=== PATIENT | female | born 1955 | race Caucasian/White ===

== ENCOUNTER 2017-01-31 16:01 | Inpatient (IN) | payer BC, OTHER ==
[2017-01-31 16:01] VITALS: PULSE 122
--- NOTE | 2017-01-31 16:20 | ED PDOC ---
Arrival/HPI - General Chief Complaint: Shortness Of Breath Time Seen by Provider: 01/31/17 16:02 Historian: Patient - History of Present Illness Narrative History of Present Illness (Text): 01/31/17 16:12 A 61 year old female, whose past medical history includes atrial fibrillation s/ p ablation and hypertension, presents to the emergency department complaining of shortness of breath, palpitations, and tachycardia. 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 Patient denies of any fever, cough, or any other complaints. PMD: Dr. Quick Symptom Onset: Sudden Symptom Course: Unchanged Past Medical History - Provider Review Nursing Documentation Reviewed: Yes - Infectious Disease Hx of Infectious Diseases: None - Tetanus Immunization Tetanus Immunization: Unknown - Cardiac Hx Hypertension: Yes Hx Pacemaker: No - Pulmonary Hx Respiratory Disorders: No - Neurological Hx Paralysis: No - HEENT Hx HEENT Disorder: No - Renal Hx Renal Disorder: No - Endocrine/Metabolic Hx Endocrine Disorders: No - Hematological/Oncological Hx Blood Transfusions: No Hx Blood Transfusion Reaction: No - Integumentary Hx Dermatological Disorder: No - Musculoskeletal/Rheumatological Hx Musculoskeletal Disorders: No - Gastrointestinal Hx Gastrointestinal Disorders: No - Genitourinary/Gynecological Hx Genitourinary Disorders: No - Psychiatric Hx Emotional Abuse: No Hx Physical Abuse: No Hx Substance Use: No - Surgical History Hx Hysterectomy: Yes - Anesthesia Hx Anesthesia Reactions: No Hx Malignant Hyperthermia: No - Suicidal Assessment Feels Threatened In Home Enviroment: No Family/Social History - Physician Review Nursing Documentation Reviewed: Yes Family/Social History: No Known Family HX Smoking Status: Never Smoked Hx Alcohol Use: No Hx Substance Use: No Hx Substance Use Treatment: No Allergies/Home Meds Allergies/Adverse Reactions: Allergies No Known Allergies Allergy (Verified 09/03/15 08:28) Home Medications: Home Meds Medication Instructions Recorded Confirmed Aspirin [Aspirin EC] 81 mg PO DAILY 09/03/15 01/31/17 Cholecalciferol (Vitamin D3) 1,000 iu PO DAILY 09/03/15 01/31/17 [Vitamin D] Lisinopril [Zestril] 5 mg PO DAILY 09/03/15 01/31/17 Multivitamin [Ngx-Cfkzpe-Mmoas] 1 each PO DAILY 09/03/15 01/31/17 Omeprazole 40 mg PO DAILY 09/03/15 01/31/17 Review of Systems - Physician Review All systems were reviewed & negative as marked: Yes - Review of Systems Constitutional: absent: Fevers Respiratory: SOB. absent: Cough Cardiovascular: Chest Pain, Palpitations Physical Exam Vital Signs Reviewed: Yes Vital Signs Temp Pulse Pulse Resp BP Pulse Ox 01/31/17 19:23 118 H 22 121/85 100 01/31/17 18:02 98.3 F 125 H 125 H 27 H 134/95 H 01/31/17 17:09 139/101 H 01/31/17 17:02 123 H 155/90 H 01/31/17 16:20 164 H 118/66 01/31/17 16:10 98.3 F 170 H 18 118/66 98 01/31/17 16:01 98.3 F 28 H 98 Temperature: Afebrile Respiratory Rate: Normal Appearance: Positive for: Well-Appearing Pain Distress: None Mental Status: Positive for: Alert and Oriented X 3 - Systems Exam Head: Present: Atraumatic, Normocephalic Pupils: Present: PERRL Extroacular Muscles: Present: EOMI Conjunctiva: Present: Normal Mouth: Present: Moist Mucous Membranes Neck: Present: Normal Range of Motion Respiratory/Chest: Present: Rhonchi (mild rhonchi ) Cardiovascular: Present: Irregular Rhythm Abdomen: Present: Normal Bowel Sounds. No: Tenderness, Distention, Peritoneal Signs Back: Present: Normal Inspection Upper Extremity: Present: Normal Inspection. No: Cyanosis, Edema Lower Extremity: Present: Normal Inspection. No: Edema Neurological: Present: GCS=15, CN II-XII Intact, Speech Normal Skin: Present: Warm, Dry, Normal Color. No: Rashes Psychiatric: Present: Alert, Oriented x 3, Normal Insight, Normal Concentration Medical Decision Making ED Course and Treatment: 01/31/17 16:19 Impression: 61 year old female with shortness of breath, palpitations, and tachycardia. Physical exam shows irregularly irregular rhythm; and mild rhonchi. Plan: -- EKG -- Chest X-ray -- Labs -- Urinalysis -- Cardizem -- Reassess and disposition Prior Visits: Notes and results from previous visits were reviewed. Patient was last seen in the emergency department on 08/02/2015 for sudden onset lower abdominal pain radiating to the left back. Patient was discharged home with prescriptions for severe pain: Ciprofloxacin HCl [Cipro] 500 mg PO BID #10 tab oxyCODONE/Acetaminophen [Percocet 5/325 mg Tab] 1 ea PO Q6 PRN #6 tab. Progress Notes: 01/31/2017 16:20 EKG: Ordered, reviewed, and independently interpreted the EKG. Rate : 159 BPM Rhythm : Atrial fibrillation Interpretation : No ST-segment elevations or depressions, no T-wave inversions, normal intervals. Comparison : No previous EKG for comparison. 01/31/2017 16:34 (REPEAT) EKG: Ordered, reviewed, and independently interpreted the EKG. Rate : 98 BPM Rhythm : Atrial fibrillation Interpretation : No ST-segment elevations or depressions, no T-wave inversions, normal intervals. Comparison : No previous EKG for comparison. 01/31/2017 17:06 Chest X-ray FINDINGS: LUNGS: Pulmonary PLEURA: Small bilateral pleural effusions. CARDIOVASCULAR: Congestion cardiomegaly, CHF OSSEOUS STRUCTURES: No significant abnormalities. VISUALIZED UPPER ABDOMEN: Normal. OTHER FINDINGS: None. IMPRESSION: Cardiomegaly/mild CHF. Dictator: Bowen Marshall MD 01/31/17 20:[address] dr lu accepts for admission. - Lab Interpretations Lab Results: 01/31/17 16:05 01/31/17 16:05 Lab Results 01/31/17 16:05: Free T4 1.49, TSH 3rd Generation 0.57 01/31/17 16:05: Sodium 141, Potassium 4.2, Chloride 109 H, Carbon Dioxide 24, Anion Gap 12, BUN 33 H, Creatinine 1.2, Est GFR ( Amer) 55, Est GFR (Non- Af Amer) 45, Random Glucose 119 H, Calcium 9.7, Magnesium 1.8, Total Bilirubin 1.2, AST 57 H, ALT 71 H, Alkaline Phosphatase 93, Lactate Dehydrogenase 517, Total Creatine Kinase 24 L, Troponin I < 0.01 D, NT-Pro-B Natriuret Pep 5600 H , Total Protein 6.1, Albumin 3.6, Globulin 2.5, Albumin/Globulin Ratio 1.4 01/31/17 16:05: PT 14.6 H, INR 1.35 H, APTT 29.9 01/31/17 16:05: WBC 7.5 D, RBC 5.00, Hgb 12.0, Hct 38.4, MCV 76.8 L, MCH 24.0 L , MCHC 31.3, RDW 16.5 H, Plt Count 156, MPV 10.8, Gran % 66.8, Lymph % (Auto) 18.8 L, [place] % (Auto) 10.7 H, Eos % (Auto) 3.4, Baso % (Auto) 0.3, Gran # 4.99, Lymph # 1.4, [place] # 0.8 H, Eos # 0.3, Baso # 0.02 I have reviewed the lab results: Yes - RAD Interpretation Radiology Orders: 01/31/17 16:10 CHEST PORTABLE [RAD] Stat - Medication Orders Current Medication Orders: Apixaban (Eliquis) 5 mg PO BID LUZMARIA PRN Reason: Protocol Last Admin: 01/31/17 18:12 Dose: Furosemide (Lasix) 40 mg IV BID LUZMARIA diltiaZEM IVPB 100mg in NS (Cardizem 100mg In Ns) 100 mls @ 10 mls/hr IV .Q10H PRN; Protocol; 10 MG/HR PRN Reason: TITRATE PER MD ORDER Last Admin: 01/31/17 19:31 Dose: 10 mg/hr, 10 mls/hr eMAR Start Stop Document 01/31/17 19:31 YP (Rec: 01/31/17 19:31 YP [id number]) Intravenous Solution Start Date 01/31/17 Start Time 19:31 Titration Intervention Document 01/31/17 19:31 YP (Rec: 01/31/17 19:31 YP [id number]) Titration Intake Waste Amount 0 Container Volume 100 Titration Dosing Titration Dose 10 IV Rate 10 Intake/Decrease Started Ceftriaxone Sodium (Rocephin 1 Gram Ivpb) 1 gm in 100 mls @ 100 mls/hr IVPB DAILY LUZMARIA PRN Reason: Protocol Azithromycin (Zithromax 500mg In Ns) 500 mg in 250 mls @ 167 mls/hr IVPB DAILY LUZMARIA PRN Reason: Protocol Lisinopril (Zestril) 2.5 mg PO DAILY LUZMARIA Pantoprazole Sodium (Protonix Ec Tab) 40 mg PO DAILY LUZMARIA Potassium Chloride (K-Dur 20 Meq Er Tab) 20 meq PO DAILY LUZMARIA Discontinued Medications Apixaban (Eliquis) 5 mg PO STAT STA PRN Reason: Protocol Stop: 01/31/17 16:39 Last Admin: 01/31/17 17:05 Dose: 5 mg Diltiazem HCl (Cardizem) 20 mg IVP STAT STA Stop: 01/31/17 16:12 Last Admin: 01/31/17 16:20 Dose: 20 mg IVP Administration Document 01/31/17 16:20 [place] (Rec: 01/31/17 16:[id number] Charges for Administration # of IVP Administrations 1 MAR Pulse and Blood Pressure Document 01/31/17 16:20 NH (Rec: 01/31/17 16:[address] [id number]) Pulse Pulse Rate (60-90) 164 Blood Pressure Blood Pressure (100/60-150/90) 118/66 Furosemide (Lasix) 40 mg IVP STAT STA Stop: 01/31/17 17:08 Last Admin: 01/31/17 17:09 Dose: 40 mg MAR Blood Pressure Document 01/31/17 17:09 NH (Rec: 01/31/17 17:10 [place] [id number]) Blood Pressure Blood Pressure (100/60-150/90) 139/101 IVP Administration Document 01/31/17 17:09 NH (Rec: 01/31/17 17:10 [place] [id number]) Charges for Administration # of IVP Administrations 1 diltiaZEM IVPB 100mg in NS (Cardizem 100mg In Ns) 100 mls @ 5 mls/hr IV .Q20H PRN; Protocol; 5 MG/HR PRN Reason: TITRATE PER MD ORDER Last Admin: 01/31/17 17:02 Dose: 5 mls/hr eMAR Start Stop Document 01/31/17 17:02 [place] (Rec: 01/31/17 17:[address] [id number]) Intravenous Solution Start Date 01/31/17 Start Time 17:03 MAR Pulse and Blood Pressure Document 01/31/17 17:02 [place] (Rec: 01/31/17 17:[address] [id number]) Pulse Pulse Rate (60-90) 123 Blood Pressure Blood Pressure (100/60-150/90) 155/90 Pneumococcal Polyvalent Vaccine (Pneumovax 23 Vaccine) 0.5 ml IM .ONCE ONE Stop: 01/31/17 18:11 - Scribe Statement The provider has reviewed the documentation as recorded by the Scribe Hanan Dabdi Provider Jean Carlos Attestation: All medical record entries made by the Jean Carlos were at my direction and personally dictated by me. I have reviewed the chart and agree that the record accurately reflects my personal performance of the history, physical exam, medical decision making, and the department course for this patient. I have also personally directed, reviewed, and agree with the discharge instructions and disposition. Disposition/Present on Arrival - Present on Arrival Any Indicators Present on Arrival: No History of DVT/PE: No History of Uncontrolled Diabetes: No Urinary Catheter: No History of Decub. Ulcer: No History Surgical Site Infection Following: None - Disposition Have Diagnosis and Disposition been Completed?: Yes Diagnosis: Atrial fibrillation, Congestive heart failure Disposition: HOSPITALIZED Disposition Time: 05:00 Condition: STABLE
[2017-01-31 16:35] LABS: BASO # 0.02 K/mm3 (0.0-2.0); BASO % 0.3 % (0.0-3.0); EOS # 0.3 (0.0-0.7); EOS % 3.4 % (1.5-5.0); GRAN # 4.99 (1.4-6.5); GRAN % 66.8 % (50.0-68.0); HEMATOCRIT 38.4 % (36.0-48.0); LYMPH # 1.4 (1.2-3.4); LYMPH % 18.8 % (22.0-35.0); MEAN CELL VOLUME 76.8 fl (80.0-105.0); MEAN CORPUSCULAR HGB CONC 31.3 g/dl (31.0-37.0); MEAN PLATELET VOLUME 10.8 fl (7.0-11.0); MONO # 0.8 (0.1-0.6); MONO % 10.7 % (1.0-6.0); RED CELL DISTRIBUTION WIDTH 16.5 % (11.5-14.5); WHITE BLOOD COUNT 7.5 10^3/ul (4.5-11.0)
[2017-01-31] MEDS ORDERED: diltiaZEM IVPB 100mg in NS 100 ML IV PRN (16:35)
[2017-01-31 16:47] LABS: INR 1.35 (0.93-1.08); PARTIAL THROMBOPLASTIN TIME 29.9 Seconds (23.7-30.8)
[2017-01-31 16:49] LABS: ALB/GLOB RATIO 1.4 (1.1-1.8); ALKALINE PHOSPHATASE 93 U/L (38-126); ALT/SGPT 71 U/L (7-56); AST/SGOT 57 U/L (14-36); BILIRUBIN,TOTAL 1.2 mg/dL (0.2-1.3); BLOOD UREA NITROGEN 33 mg/dL (7-21); CALCIUM 9.7 mg/dL (8.4-10.5); CARBON DIOXIDE 24 mmol/L (21-33); CHLORIDE 109 mmol/L (98-107); GFR AFRICAN-AMERICAN 55; GLUCOSE,RANDOM 119 mg/dL (70-110); MAGNESIUM 1.8 mg/dL (1.7-2.2); POTASSIUM 4.2 mmol/L (3.6-5.0); SODIUM 141 mmol/L (132-148); TOTAL PROTEIN 6.1 g/dL (5.8-8.3)
[2017-01-31 17:05] LABS: FREE T4 1.49 ng/dL (0.78-2.19)
--- NOTE | 2017-01-31 17:08 | RAD ---
HISTORY: Shortness of breath. Technique: Single view portable semi erect @ 16:27. COMPARISON: 08/02/2015. FINDINGS: LUNGS: Pulmonary PLEURA: Small bilateral pleural effusions. CARDIOVASCULAR: Congestion cardiomegaly, CHF OSSEOUS STRUCTURES: No significant abnormalities. VISUALIZED UPPER ABDOMEN: Normal. OTHER FINDINGS: None. IMPRESSION: Cardiomegaly/mild CHF.
[2017-01-31 17:09] LABS: TROPONIN I < 0.01 ng/mL
[2017-01-31 17:19] LABS: THYROID STIMULATING HORMONE 0.57 mIU/mL (0.46-4.68)
--- NOTE | 2017-01-31 17:31 | CP.PCM.HP ---
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 Patient states these symptoms began approximately 3-4 days ago without any provoking events. States that she requires 2 pillows to sleep at night to prevent SOB. Admits to dysnpea on exertion. Denies f/c/cp/abdominal pain/n/v/d/c /urinary sxs. PMHx: atrial fibrillation s/p ablation, hypertension, hyperthyroidism PSHX: hysterectomy, cardiac ablation x 1 Allergies: NKDA Family Hx: cad in father Social Hx: denies ETOH use, denies tobacco use, denies illicit drug use PMD: Dr. Quick Physical Examination: Head: Present: Atraumatic, Normocephalic Pupils: Present: PERRL Extroacular Muscles: Present: EOMI Conjunctiva: Present: Normal Mouth: Present: Moist Mucous Membranes Neck: Present: Normal Range of Motion Respiratory/Chest: Present: Rhonchi bilateral lower lobes Cardiovascular: Present: Irregular Rhythm, tachycardic Abdomen: Present: Normal Bowel Sounds. No: Tenderness, Distention, Peritoneal Signs Back: Present: Normal Inspection Extremities: +1 pitting edema bilateral lower extremities Neurological: Patient is awake, alert, responds to verbal stimuli, answers questions appropriately, follows commands, and moves extremities past midline Skin: Present: Warm, Dry, Normal Color. No: Rashes Psychiatric: Present: Alert, Oriented x 3, Normal Insight, Normal Concentration Assessment and Plan: Patient is a 61 year old female with a past medical history of atrial fibrillation s/p ablation and hypertension who is being admitted to the hospital for evaluation and treatment of SOB and palpitations. Atrial Fibrillation with RVR - cardiology consult- Dr. Huang- recommendations appreciated- cardizem gtt at 20, lisinopril 2.5, lasix 40 IV BID, and eliquis 5mg BID - troponins x 3 - ECHO - TSH WNL noted CHF Exacerbation - BNP noted at 5600 - start lasix 40 IV BID as per cardiology - cardiology consult- appreciate recommendations Hypertension - lisinopril 2.5 as per cardiology, kidney function was discussed - BPs trended, reviewed, and appreciated Lower Extremity Edema - likely secondary to CHF exacerbtion, will rule out DVTs- b/l duplex ultrasound of LE Hx of Hyperthyroidism - TSH and T4 WNL PPX - protonix - on eliquis Patient seen, case discussed with, and plan approved by attending physician, Dr. Cheng. Present on Admission - Present on Admission Any Indicators Present on Admission: No Past Patient History - Infectious Disease Hx of Infectious Diseases: None - Tetanus Immunizations Tetanus Immunization: Unknown - Past Social History Smoking Status: Never Smoked - CARDIAC Hx Hypertension: Yes Hx Pacemaker: No - PULMONARY Hx Respiratory Disorders: No - NEUROLOGICAL Hx Paralysis: No - HEENT Hx HEENT Problems: No - RENAL Hx Chronic Kidney Disease: No - ENDOCRINE/METABOLIC Hx Endocrine Disorders: No - HEMATOLOGICAL/ONCOLOGICAL Hx Blood Transfusions: No Hx Blood Transfusion Reaction: No - INTEGUMENTARY Hx Dermatological Problems: No - MUSCULOSKELETAL/RHEUMATOLOGICAL Hx Musculoskeletal Disorders: No - GASTROINTESTINAL Hx Gastrointestinal Disorders: No - GENITOURINARY/GYNECOLOGICAL Hx Genitourinary Disorders: No - PSYCHIATRIC Hx Emotional Abuse: No Hx Physical Abuse: No Hx Substance Use: No - SURGICAL HISTORY Hx Hysterectomy: Yes - ANESTHESIA Hx Anesthesia Reactions: No Hx Malignant Hyperthermia: No Meds Allergies/Adverse Reactions: Allergies Allergy/AdvReac Type Severity Reaction Status Date / Time No Known Allergies Allergy Verified 09/03/15 08:28 Results - Vital Signs Recent Vital Signs: Last Vital Signs Temp 98.3 F 01/31/17 16:10 Pulse 123 H 01/31/17 17:02 Resp 18 01/31/17 16:10 BP 139/101 H 01/31/17 17:09 Pulse Ox 98 01/31/17 16:10 - Labs Result Diagrams: 01/31/17 16:05 01/31/17 16:05 Labs: Laboratory Results - last 24 hr 01/31/17 01/31/17 01/31/17 16:05 16:05 16:05 WBC 7.5 D RBC 5.00 Hgb 12.0 Hct 38.4 MCV 76.8 L MCH 24.0 L MCHC 31.3 RDW 16.5 H Plt Count 156 MPV 10.8 Gran % 66.8 Lymph % (Auto) 18.8 L [place] % (Auto) 10.7 H Eos % (Auto) 3.4 Baso % (Auto) 0.3 Gran # 4.99 Lymph # 1.4 [place] # 0.8 H Eos # 0.3 Baso # 0.02 PT 14.6 H INR 1.35 H APTT 29.9 Sodium 141 Potassium 4.2 Chloride 109 H Carbon Dioxide 24 Anion Gap 12 BUN 33 H Creatinine 1.2 Est GFR ( Amer) 55 Est GFR (Non-Af Amer) 45 Random Glucose 119 H Calcium 9.7 Magnesium 1.8 Total Bilirubin 1.2 AST 57 H ALT 71 H Alkaline Phosphatase 93 Lactate Dehydrogenase 517 Total Creatine Kinase 24 L Troponin I < 0.01 D NT-Pro-B Natriuret Pep 5600 H Total Protein 6.1 Albumin 3.6 Globulin 2.5 Albumin/Globulin Ratio 1.4 <Lucinda Cheng B - Last Filed: 02/01/17 13:38> Results - Vital Signs Recent Vital Signs: Last Vital Signs Temp 97.3 F L 02/01/17 12:27 Pulse 78 02/01/17 12:27 Resp 19 02/01/17 12:27 BP 127/69 02/01/17 12:27 Pulse Ox 99 02/01/17 00:51 - Labs Result Diagrams: 02/01/17 07:33 02/01/17 07:33 Labs: Laboratory Results - last 24 hr 01/31/17 02/01/17 02/01/17 17:57 00:10 07:33 WBC RBC Hgb Hct MCV MCH MCHC RDW Plt Count MPV Gran % Lymph % (Auto) [place] % (Auto) Eos % (Auto) Baso % (Auto) Gran # Lymph # [place] # Eos # Baso # Sodium Potassium Chloride Carbon Dioxide Anion Gap BUN Creatinine Est GFR ( Amer) Est GFR (Non-Af Amer) Random Glucose Hemoglobin A1c Calcium Magnesium Total Bilirubin AST ALT Alkaline Phosphatase Troponin I 0.02 D Total Protein Albumin Globulin Albumin/Globulin Ratio Triglycerides Cholesterol LDL Cholesterol Direct HDL Cholesterol Urine Color Yellow Urine Appearance Sl cloudy Urine pH 6.0 Ur Specific [place] 1.020 Urine Protein Trace H Urine Glucose (UA) Negative Urine Ketones Negative Urine Blood Negative Urine Nitrate Negative Urine Bilirubin Negative Urine Urobilinogen 0.2 Ur Leukocyte Esterase Small H Urine RBC 0 - 2 Urine WBC 2 - 5 Ur Epithelial Cells 1 - 3 Urine Bacteria Rare Hepatitis A IgM Ab Negative Hep Bs Antigen Negative Hep B Core IgM Ab Negative Hepatitis C Antibody Negative 02/01/17 02/01/17 02/01/17 07:33 07:33 07:33 WBC 6.7 RBC 4.53 Hgb 10.9 L Hct 34.7 L MCV 76.6 L MCH 24.1 L MCHC 31.4 RDW 16.4 H Plt Count 135 MPV 10.5 Gran % 65.0 Lymph % (Auto) 18.1 L [place] % (Auto) 12.1 H Eos % (Auto) 4.5 Baso % (Auto) 0.3 Gran # 4.34 Lymph # 1.2 [place] # 0.8 H Eos # 0.3 Baso # 0.02 Sodium 142 Potassium 3.9 Chloride 105 Carbon Dioxide 30 Anion Gap 11 BUN 25 H Creatinine 0.8 Est GFR ( Amer) > 60 Est GFR (Non-Af Amer) > 60 Random Glucose 87 Hemoglobin A1c 6.0 Calcium 9.2 Magnesium 1.7 Total Bilirubin 1.0 AST 37 H D ALT 58 H Alkaline Phosphatase 84 Troponin I 0.02 Total Protein 5.3 L Albumin 3.0 Globulin 2.3 Albumin/Globulin Ratio 1.3 Triglycerides 60 Cholesterol 119 L LDL Cholesterol Direct 89 HDL Cholesterol 27 L Urine Color Urine Appearance Urine pH Ur Specific [place] Urine Protein Urine Glucose (UA) Urine Ketones Urine Blood Urine Nitrate Urine Bilirubin Urine Urobilinogen Ur Leukocyte Esterase Urine RBC Urine WBC Ur Epithelial Cells Urine Bacteria Hepatitis A IgM Ab Hep Bs Antigen Hep B Core IgM Ab Hepatitis C Antibody Attending/Attestation - Attestation I have personally seen and examined this patient.: Yes I have fully participated in the care of the patient.: Yes I have reviewed all pertinent clinical information: Yes Notes (Text): I have seen and examined the patient at bedside. Agree with the above note with the following additions/ exceptions: Briefly this is 61 year old female with history of atrial fibrillation s/p ablation, hypertension, transient hyperthyroidism who is being admitted for evaluation of sob, bilateral leg edema , elevated BNP and cough. She was found to have acute on chronic CHF, new onset atrial fibrillation. Patient will be admitted in tele. Will monitor serial cardiac iso, ekg, lipid panel. TFT's within normal limits. Cardizem bolus was given followed by cardizem drip. Eliquis and Lasix 40 IV bid started. Will order B/L LE US. She has transaminitis secondary to passive congestion from CHF. Hep panel pending. Upon discharge patient will follow up with Dr Quick and Dr Escalante. Dr Lucinda Cheng
[2017-01-31 18:06] LABS: URINE BILIRUBIN NEGATIVE (NEGATIVE); URINE BLOOD NEGATIVE (NEGATIVE); URINE GLUCOSE (UA) NEGATIVE (NEGATIVE); URINE KETONE NEGATIVE (NEGATIVE); URINE LEUKOCYTE ESTERASE SMALL Leu/uL (NEGATIVE); URINE PROTEIN TRACE mg/dL (<30 mg/dL); URINE UROBILINOGEN 0.2 E.U./dL (<1 E.U./dL)
[2017-01-31 18:09] VITALS: BMI 40.4
[2017-01-31 18:10] LABS: URINE APPEARANCE SL CLOUDY (CLEAR); URINE COLOR YELLOW (YELLOW)
[2017-01-31] MEDS ORDERED: Pneumococcal 23-Valent Vaccine IM ONE (18:10)
[2017-01-31 18:50] LABS: URINE RBC 0 - 2 /hpf (0-2)
[2017-01-31 18:51] LABS: URINE BACTERIA RARE (NEG)
[2017-01-31] MEDS: diltiaZEM IVPB 100mg in NS 100 ML IV PRN (19:31)
--- NOTE | 2017-02-01 01:21 | CON ---
DATE: 01/31/2017 LOCATION: The patient is in the emergency room. REASON FOR CONSULTATION: Atrial fibrillation, rapid rate, shortness of breath. HISTORY OF PRESENT ILLNESS: The patient is a known case of atrial fibrillation in the past and had EDD cardioversion, went to sinus rhythm, then again she went into atrial fibrillation with symptomatic being shortness of breath and then she had ablation done by Dr. 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 Last few days, she is having shortness of breath and palpitation and she is found to have rapid atrial fibrillation again. The patient in the past has been also treated for hyperthyroidism, and the patient is also known to have retrosternal goiter. Previous hospitalization, the patient was admitted with atrial fibrillation, rapid rate and shortness of breath, and the patient also had endoscopy, colonoscopy and polyps were removed, and she was also treated for gastritis, and the patient was treated for hyperthyroidism with thyrotoxicosis. The patient's previous cardiac workup, the patient had transesophageal echocardiogram on 01/09/2015, which showed left ventricle is mildly dilated, [id number] concentric left ventricular hypertrophy, LV ejection fraction, moderately impaired with EF of 35%, right ventricle mildly dilated, systolic function of RV is mildly reduced, moderate aortic regurg, mitral regurg, [id number], there is moderate tricuspid regurg, RVSP 42 mmHg, mild pulmonic regurgitation, trivial pericardial effusion, mild plaque in the descending aorta. The patient was cardioverted with 22 joules and converted to normal sinus rhythm. The patient had cardiac catheterization on 12/16/2014, which showed normal coronaries, ejection fraction 45% to 50%. The patient was in atrial fibrillation at that time. PA pressure was 45/20 with mean of 30 mmHg, PC wedge pressure was 20 mmHg, cardiac output was 3.0. ALLERGIES: THE PATIENT HAS NO ALLERGIES. MEDICATIONS AT HOME: Omeprazole 40 daily, lisinopril 5 mg daily, vitamin D 1000 IU daily, aspirin 81 mg p.o. daily. After the patient had ablation done for atrial fibrillation, her beta-gretta therapy was stopped. PERSONAL HISTORY: Denies smoking. Denies drinking. FAMILY HISTORY: Not significant. REVIEW OF SYSTEMS: All other systems reviewed. Positive mentioned in the history, others were negative. PHYSICAL EXAMINATION: VITAL SIGNS: Blood pressure 118/66, respirations 18, pulse about 164 per minute, irregular due to atrial fibrillation and temperature 98.3. HEENT: Head is normocephalic. Eyes: Pupils normal. Conjunctivae normal. Nose and throat normal. NECK: JVP low. Carotids are equal. THORAX: AP diameter normal. LUNGS: No significant rales. CARDIOVASCULAR: S1 and S2, irregular rhythm due to atrial fibrillation. ABDOMEN: Soft, nontender. No organomegaly. EXTREMITIES: No clubbing. No cyanosis. Oedema Legs Present. LABORATORY DATA: EKG showed atrial fibrillation with rapid rate around 160 to 170 per minute. WBC is 7.5, hemoglobin 12.0, hematocrit 38.4, and platelets 156. The patient's other labs are pending. Chest x-ray is pending. Other blood work including TSH is pending. is also pending. DIAGNOSES: 1. Atrial fibrillation with rapid ventricular rate. 2. Shortness of breath, rule out congestive heart failure. 3. History of hyperthyroidism. 4. Obesity. 5. History of left ventricular systolic dysfunction which had improved after ablation and the patient being in sinus rhythm. The patient has a history of aortic regurgitation and mitral regurgitation. PLAN: We will give 20 mg of IV bolus of Cardizem and then put 5 mg drip. Also, we will start her Eliquis 5 mg b.i.d. We will check thyroid profile and other lab data including chest x-ray, and we will follow with you. Jose Huang MD [facility]
[2017-02-01] MEDS: diltiaZEM IVPB 100mg in NS 100 ML IV PRN (02:20)
[2017-02-01 07:47] LABS: BASO # 0.02 K/mm3 (0.0-2.0); BASO % 0.3 % (0.0-3.0); EOS # 0.3 (0.0-0.7); EOS % 4.5 % (1.5-5.0); GRAN # 4.34 (1.4-6.5); HEMATOCRIT 34.7 % (36.0-48.0); LYMPH # 1.2 (1.2-3.4); LYMPH % 18.1 % (22.0-35.0); MEAN CELL VOLUME 76.6 fl (80.0-105.0); MEAN CORPUSCULAR HEMOGLOBIN 24.1 pg (25.0-35.0); MEAN CORPUSCULAR HGB CONC 31.4 g/dl (31.0-37.0); MEAN PLATELET VOLUME 10.5 fl (7.0-11.0); MONO # 0.8 (0.1-0.6); MONO % 12.1 % (1.0-6.0); RED CELL DISTRIBUTION WIDTH 16.4 % (11.5-14.5); WHITE BLOOD COUNT 6.7 10^3/ul (4.5-11.0)
[2017-02-01 07:58] LABS: ALB/GLOB RATIO 1.3 (1.1-1.8); ALKALINE PHOSPHATASE 84 U/L (38-126); ALT/SGPT 58 U/L (7-56); AST/SGOT 37 U/L (14-36); BLOOD UREA NITROGEN 25 mg/dL (7-21); CALCIUM 9.2 mg/dL (8.4-10.5); CARBON DIOXIDE 30 mmol/L (21-33); CHLORIDE 105 mmol/L (98-107); CHOLESTEROL 119 mg/dL (130-200); GFR AFRICAN-AMERICAN > 60; GLUCOSE,RANDOM 87 mg/dL (70-110); MAGNESIUM 1.7 mg/dL (1.7-2.2); POTASSIUM 3.9 mmol/L (3.6-5.0); SODIUM 142 mmol/L (132-148); TOTAL PROTEIN 5.3 g/dL (5.8-8.3)
[2017-02-01 08:09] LABS: TROPONIN I 0.02 ng/mL
[2017-02-01] MEDS: Potassium Chloride 20 mEq ER Tab PO SCH (09:27)
[2017-02-01] MEDS: Pantoprazole 40 mg EC Tab PO SCH (09:28)
[2017-02-01] MEDS: Magnesium Oxide 400 mg Tab UD PO SCH ×2 (09:29→17:05)
--- NOTE | 2017-02-01 09:30 | CP.PCM.PN ---
<Lalitha Gonzalez - Last Filed: 02/01/17 14:29> Subjective - Date & Time of Evaluation Date of Evaluation: 02/01/17 Time of Evaluation: 09:28 - Subjective Subjective: Hospitalist Service Progress Note: Patient seen and examined at bedside. Per nursing no acute events overnight. Patient resting, still short of breath with productive cough. Offers no other complaints at this time. Denies headaches, dizziness, cp, palpitations, abdominal pain, urinary symptoms. Objective - Vital Signs/Intake and Output Vital Signs (last 24 hours): Temp Pulse Resp BP Pulse Ox 97.8 F 104 H 19 130/90 99 02/01/17 00:51 02/01/17 06:00 02/01/17 00:51 02/01/17 00:51 02/01/17 00:51 Intake and Output: 02/01/17 02/01/17 06:59 18:59 Intake Total 220 Output Total 600 Balance -380 - Medications Medications: Current Medications Acetaminophen (Tylenol 325mg Tab) 650 mg PO Q6H PRN PRN Reason: Headache Last Admin: 02/01/17 03:22 Dose: 650 mg Apixaban (Eliquis) 5 mg PO BID LUZMARIA PRN Reason: Protocol Last Admin: 01/31/17 18:12 Dose: Not Given Furosemide (Lasix) 40 mg IV BID LUZMARIA diltiaZEM IVPB 100mg in NS (Cardizem 100mg In Ns) 100 mls @ 10 mls/hr IV .Q10H PRN; Protocol; 10 MG/HR PRN Reason: TITRATE PER MD ORDER Stop: 02/01/17 10:00 Last Admin: 02/01/17 02:20 Dose: 10 mg/hr, 10 mls/hr Ceftriaxone Sodium (Rocephin 1 Gram Ivpb) 1 gm in 100 mls @ 100 mls/hr IVPB DAILY [facility]ZMARIA PRN Reason: Protocol Azithromycin (Zithromax 500mg In Ns) 500 mg in 250 mls @ 167 mls/hr IVPB DAILY LUZMARIA PRN Reason: Protocol Lisinopril (Zestril) 2.5 mg PO DAILY [facility] Magnesium Oxide (Mag-Ox) 400 mg PO BID [facility]ZMAR[facility] Stop: 02/02/17 23:59 Pantoprazole Sodium (Protonix Ec Tab) 40 mg PO DAILY [facility]MAR[facility] Potassium Chloride (K-Dur 20 Meq Er Tab) 20 meq PO DAILY [facility]ZMARIA Potassium Chloride (K-Dur 20 Meq Er Tab) 40 meq PO ONCE ONE Stop: 02/01/17 13:01 Propranolol HCl (Inderal) 10 mg PO TID LUZMARIA Verapamil HCl (Calan Tab) 40 mg PO TID LUZMARIA - Labs Labs: 02/01/17 07:33 02/01/17 07:33 PT 14.6 Seconds (9.9-11.8) H 01/31/17 16:05 INR 1.35 (0.93-1.08) H 01/31/17 16:05 APTT 29.9 Seconds (23.7-30.8) 01/31/17 16:05 - Constitutional Appears: Non-toxic, No Acute Distress - Head Exam Head Exam: ATRAUMATIC, NORMAL INSPECTION - Eye Exam Eye Exam: EOMI, Normal appearance - ENT Exam ENT Exam: Mucous Membranes Moist - Neck Exam Neck Exam: Full ROM - Respiratory Exam Respiratory Exam: Decreased Breath Sounds, Rales, Wheezes, NORMAL BREATHING PATTERN. absent: Rhonchi - Cardiovascular Exam Cardiovascular Exam: Irregular Rhythm, +S1, +S2 - GI/Abdominal Exam GI & Abdominal Exam: Soft. absent: Guarding, Rigid, Tenderness, Rebound - Rectal Exam Rectal Exam: Deferred - Extremities Exam Extremities Exam: Pedal Edema Additional comments: +1 pitting edema bilaterally - Back Exam Back Exam: NORMAL INSPECTION - Neurological Exam Neurological Exam: Alert, Awake, Oriented x3 - Psychiatric Exam Psychiatric exam: Normal Affect, Normal Mood - Skin Skin Exam: Normal Color, Warm Assessment and Plan - Assessment and Plan (Free Text) Assessment: Patient is a 61 year old female with a past medical history of atrial fibrillation s/p ablation and hypertension who is being admitted to the hospital for evaluation and treatment of SOB and palpitations. Plan: 1. Recurrent Paroxysmal Atrial Fibrillation with RVR - Stable, afebrile - S/P ablation in 2014 - Afib currently on telemetry - s/p Cardizem 20mg IV bolus - Cardizem drip discontinued - On Verapamil 40 mg TID, Propanolol 10 mg TID - [id number]: 3 on Eliquis 5mg BID - Troponins 0.01 - 0.02 - 0.02 - Echo ordered, f/u results - Cardiology consult- Dr. Huang- recommendations appreciated 2. Acute CHF Exacerbation - BNP noted at 5600 - EF 12/2014 noted to be 35% - CXR on admission showing cardiomegaly and mild CHF - Continue Lasix 40 IV BID - F/U echo - Daily weights - Xopenex prn - Cardiology consult- appreciate recommendations 3. Productive cough, possible community acquired pneumonia - On Rocephin and Azithromycin (day 2) - F/U influenza, sputum cx - Xopenex Q4H prn 4. Hypertension - Lisinopril 2.5mg daily as per cardiology, kidney function was discussed - Continue to monitor BPs 5. Lower Extremity Edema - Likely secondary to CHF exacerbtion - LE dopplers negative for DVT 6. Transaminitis - Likely secondary to passive congestion from CHF - Improving; AST/ALT 37/58 - F/U hep panel - Continue to monitor 7. Urinary Tract Infection - UA showing small leuk esterase and bacteria - On azithromycin and Rocephin (day 2) - F/U urine cx 8. Transient Hyperthyroidism - TSH and T4 WNL GI/DVT PPX - Protonix - Eliquis 5 mg BID <Lucinda Cheng - Last Filed: 02/01/17 15:51> Objective - Vital Signs/Intake and Output Vital Signs (last 24 hours): Temp Pulse Resp BP Pulse Ox 97.3 F L 77 19 127/69 99 02/01/17 12:27 02/01/17 14:00 02/01/17 12:27 02/01/17 12:27 02/01/17 00:51 Intake and Output: 02/01/17 02/01/17 06:59 18:59 Intake Total 220 Output Total 600 Balance -380 - Medications Medications: Current Medications Acetaminophen (Tylenol 325mg Tab) 650 mg PO Q6H PRN PRN Reason: Headache Last Admin: 02/01/17 03:22 Dose: 650 mg Apixaban (Eliquis) 5 mg PO BID LUZMARIA PRN Reason: Protocol Last Admin: 02/01/17 09:27 Dose: 5 mg Furosemide (Lasix) 40 mg IVP BID LUZMARIA Last Admin: 02/01/17 09:46 Dose: 40 mg Ceftriaxone Sodium (Rocephin 1 Gram Ivpb) 1 gm in 100 mls @ 100 mls/hr IVPB DAILY LUZMARIA PRN Reason: Protocol Last Admin: 02/01/17 10:39 Dose: 100 mls/hr Azithromycin (Zithromax 500mg In Ns) 500 mg in 250 mls @ 167 mls/hr IVPB DAILY LUZMARIA PRN Reason: Protocol Last Admin: 02/01/17 11:51 Dose: 167 mls/hr Levalbuterol HCl (Xopenex) 1.25 mg IH [id number] PRN PRN Reason: Shortness of Breath Lisinopril (Zestril) 2.5 mg PO DAILY [facility] Last Admin: 02/01/17 09:28 Dose: 2.5 mg Magnesium Oxide (Mag-Ox) 400 mg PO BID [facility] Stop: 02/02/17 23:59 Last Admin: 02/01/17 09:29 Dose: 400 mg Pantoprazole Sodium (Protonix Ec Tab) 40 mg PO DAILY [facility] Last Admin: 02/01/17 09:28 Dose: 40 mg Potassium Chloride (K-Dur 20 Meq Er Tab) 20 meq PO DAILY [facility] Last Admin: 02/01/17 09:27 Dose: 20 meq Propranolol HCl (Inderal) 10 mg PO TID [facility] Last Admin: 02/01/17 13:38 Dose: 10 mg Verapamil HCl (Calan Tab) 40 mg PO TID [facility] Last Admin: 02/01/17 13:38 Dose: 40 mg - Labs Labs: 02/01/17 07:33 02/01/17 07:33 PT 14.6 Seconds (9.9-11.8) H 01/31/17 16:05 INR 1.35 (0.93-1.08) H 01/31/17 16:05 APTT 29.9 Seconds (23.7-30.8) 01/31/17 16:05 Attending/Attestation - Attestation I have personally seen and examined this patient.: Yes I have fully participated in the care of the patient.: Yes I have reviewed all pertinent clinical information, including history, physical exam and plan: Yes Notes (Text): I have seen and examined the patient at bedside. Agree with the above note with the following additions/ exceptions: Briefly this is 61 year old female with history of atrial fibrillation s/p ablation, hypertension, transient hyperthyroidism, systolic CHF (35%), valvular heart disease, Moderate AR, moderate to severe AR who is being admitted for evaluation of sob, bilateral leg edema, elevated BNP and cough. She was found to have acute on chronic CHF and new onset atrial fibrillation. Serial cardiac iso negative. Cardizem drip was discontinued and patient was started on verapamil and propranolol. TFT's within normal limits. Continue Eliquis, lisinopril and Lasix 40 IV bid. B/L LE US is negative. She has transaminitis secondary to passive congestion from CHF. Hep panel is negative. Patient is on rocephin and zithro for acute bronchitis. Will start xopenex prn wheezing. Upon discharge patient will follow up with Dr Quick and Dr Escalante. Dr Lucinda Cheng
[2017-02-01] MEDS: cefTRIAXone 1 gm 1 GM/100 ML BAG IVPB SCH (10:39)
[2017-02-01] MEDS ORDERED: Levalbuterol 1.25 MG/3 ML Inhal Soln UD IH PRN (11:11)
--- NOTE | 2017-02-01 11:46 | CARD ---
APPROVED REPORT EKG Measurement Heart [id number] <Conclusion> Atrial fibrillation with rapid ventricular response Nonspecific T wave abnormality, probably digitalis effect Abnormal ECG
--- NOTE | 2017-02-01 11:46 | CARD ---
APPROVED REPORT EKG Measurement Heart [id number] <Conclusion> Atrial fibrillation Nonspecific T wave abnormality, probably digitalis effect Abnormal ECG
[2017-02-01] MEDS: Azithromycin 500MG/NS 250ml 500 MG/250 ML BAG IVPB SCH (11:51)
[2017-02-01] MEDS ORDERED: Potassium Chloride 20 mEq ER Tab PO ONE (13:00)
--- NOTE | 2017-02-01 15:00 | PN ---
DATE: 02/01/2017 REASON FOR CONSULTATION AND FOLLOWUP: Decompensated congestive heart failure, AFib with rapid ventricular rate, and shortness of breath. SUBJECTIVE: The patient is coming from the bathroom with a very short of breath. After coming from the bathroom, denies any chest pain, but complain of shortness of breath on exertion. OBJECTIVE: GENERAL: Sitting at the bedside with short of breath, no chest pain. VITAL SIGNS: Temperature afebrile, heart rate 104, and blood pressure 130/90. HEENT: PERRLA intact. NECK: Supple. No carotid bruits or thyromegaly. CHEST: Clear to auscultation, few crackles at the base. ABDOMEN: Soft. EXTREMITIES: Clubbing and cyanosis negative, 1 to 2+ pedal edema. INPUT AND OUTPUT: I's and O's 400 mL, negative fluid balance. LABORATORY DATA: Blood workup as follows. WBC is 6.1, hemoglobin 10.9, hematocrit 34.7, and platelet count 135. Chemistries show sodium 140, potassium 3.9, chloride 105, carbon dioxide of 30, anion gap of 11, BUN 25, creatinine 0.8, total protein 5.3, albumin 3, globulin 2.3, and albumin/globulin ratio 1.3. TSH 0.57, free T4 is 1.49, cholesterol 119, LDL 89, and HDL 27. Troponin 0.01, 0.02 x2 negative. IMPRESSION: A 61-year-old female with past medical history significant for atrial fibrillation, hyperthyroidism, status post radiofrequency ablation, history of mildly dilated ventricle, decreased left ventricular function at 35%, valvular heart disease, reduced left ventricular systolic function, moderate aortic regurgitation, [id number] mitral regurgitation, moderate tricuspid systolic pressure of 42, admitted yesterday with continue shortness of breath and found to be in atrial fibrillation with rapid ventricular rate. The patient has a previous cardiac workup, cardiac work up of 12/16/2014 that shows normal coronary with ejection fraction of 40% to 45%. At that time, right heart catheterization showed PA 45/20, mean PA of 30, and mid pressure of 20. Cardiac output 3 L per minute, admitted with acute decompensated congestive heart failure as well as atrial fibrillation with rapid ventricular rate. The patient is on Cardizem, it is not well controlled, still heart rate goes to 120 on minimal exertion. Obesity, hyperthyroidism, now the thyroid function is within the normal limit, TSH and T4. RECOMMENDATIONS: We will switch over to verapamil, start p.o. Continue Eliquis. We will get echo to assess LV function. Continue IV Lasix, monitor electrolytes, and supplement electrolyte as needed. Once the patient become euvolemic, able to lay flat, consider EDD cardioversion while the patient is here as outpatient, we will determine day by day. For now, continue aggressive diagnosis to control the heart rate, but now the goal is to get more diuresis and control the heart rate. 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 I discussed with her. We will start verapamil stat dose and then switch over to p.o. verapamil. Continue apixaban and put propranolol 10 mg t.i.d. to control the heart rate, because the patient is running low blood pressure, so we will give 10 mg p.o. t.i.d. Continue IV Lasix. Monitor weight and monitor the electrolytes. Jose Escalante MD
--- NOTE | 2017-02-01 20:02 | US ---
HISTORY: Leg pain and swelling. Evaluate for DVT PHYSICIAN(S): Tyrone Gustafson MD. TECHNIQUE: Duplex sonography and color-flow Doppler with graded compression were used to evaluate the deep venous systems of both lower extremities. FINDINGS: The visualized deep venous systems of both lower extremities are sonographically normal and compressible. Normal wave forms and augmentation are seen. There is no sonographic evidence for deep venous thrombosis in the visualized segments of both lower extremities. IMPRESSION: No sonographic evidence for deep venous thrombosis in the visualized segments of both lower extremities.
--- NOTE | 2017-02-02 06:46 | CARD ---
APPROVED REPORT EXAM: Two-dimensional and M-mode echocardiogram with Doppler and color Doppler. INDICATION Atrial Fibrillation 2D DIMENSIONS Left Atrium (2D)6.1 (1.6-4.0cm)IVSd1.1 (0.7-1.1cm) LVDd5.4 (3.9-5.9cm)PWd1.0 (0.7-1.1cm) LVDs4.4 (2.5-4.0cm)FS (%) 18.4 % LVEF (%)37.8 (>50%) M-Mode DIMENSIONS Aortic Root3.50 (2.2-3.7cm)Aortic Cusp Exc.1.80 (1.5-2.0cm) Aortic Valve AoV Peak Modrskqz746.0cm/Shayna Peak GR.9mmHgAI P 1/2 [id number] Mitral Valve E/A ratio0.0 TDI E/Lateral E'0.0E/Medial E'0.0 Pulmonary Valve PV Peak Vlhnbvow34.1cm/sPV Peak Grad.1mmHg Tricuspid Valve TR Peak Ywcsunih072fd/sRAP [id number] Peak Gr.17mmHg [id number] LEFT VENTRICLE The left ventricle is normal size. There is normal left ventricular wall thickness. The systolic function is moderately impaired.EF-35% There is normal LV segmental wall motion. There is global hypokinesis of the left ventricle. A fib No left ventricle thrombus noted on this study. There is no ventricular septal defect visualized. There is no left ventricular aneurysm. There is no mass noted in the left ventricle. RIGHT VENTRICLE The right ventricle is normal size. There is normal right ventricular wall thickness. The right ventricular systolic function is normal. ATRIA The left atrium is severely dilated. The right atrium is moderately dilated. The interatrial septum is intact with no evidence for an atrial septal defect. AORTIC VALVE The aortic valve is thickened but opens well. There is mild to moderate aortic regurgitation. There is no aortic valvular stenosis. There is no aortic valvular vegetation. MITRAL VALVE The mitral valve is thickened but opens well. Mitral regurgitation is moderate. There is no mitral valve stenosis. There is no evidence of mitral valve prolapse. TRICUSPID VALVE The tricuspid valve leaflets are thickened , but open well. There is mild tricuspid regurgitation.RVSP-27 mmof Hg There is no tricuspid valve stenosis. PULMONIC VALVE The pulmonary valve is normal in structure. There is mild pulmonic valvular regurgitation. GREAT VESSELS The aortic root is normal in size. The ascending aorta is normal in size. The pulmonary artery is normal. The IVC is normal in size and collapses >50% with inspiration. PERICARDIAL EFFUSION There is no pleural effusion. There is no pericardial effusion. <Conclusion> The left ventricle is normal size. There is normal left ventricular wall thickness. The systolic function is moderately impaired.EF-35% A fib There is mild to moderate aortic regurgitation. Mitral regurgitation is moderate. There is mild tricuspid regurgitation.RVSP-27 mmof Hg The IVC is normal in size and collapses >50% with inspiration. There is no pericardial effusion. The left atrium is severely dilated. no thrombus noted
[2017-02-02 06:55] LABS: BASO # 0.01 K/mm3 (0.0-2.0); BASO % 0.2 % (0.0-3.0); EOS # 0.3 (0.0-0.7); EOS % 4.3 % (1.5-5.0); GRAN # 3.84 (1.4-6.5); HEMATOCRIT 36.6 % (36.0-48.0); LYMPH # 1.1 (1.2-3.4); MEAN CELL VOLUME 77.5 fl (80.0-105.0); MEAN CORPUSCULAR HEMOGLOBIN 23.9 pg (25.0-35.0); MEAN CORPUSCULAR HGB CONC 30.9 g/dl (31.0-37.0); MEAN PLATELET VOLUME 10.3 fl (7.0-11.0); MONO # 0.8 (0.1-0.6); MONO % 12.5 % (1.0-6.0); RED CELL DISTRIBUTION WIDTH 16.3 % (11.5-14.5)
[2017-02-02 08:04] LABS: ALB/GLOB RATIO 1.3 (1.1-1.8); ALKALINE PHOSPHATASE 75 U/L (38-126); ALT/SGPT 52 U/L (7-56); AST/SGOT 30 U/L (14-36); BILIRUBIN,TOTAL 0.8 mg/dL (0.2-1.3); BLOOD UREA NITROGEN 27 mg/dL (7-21); CALCIUM 9.2 mg/dL (8.4-10.5); CARBON DIOXIDE 31 mmol/L (21-33); CHLORIDE 105 mmol/L (98-107); GFR AFRICAN-AMERICAN > 60; GLUCOSE,RANDOM 86 mg/dL (70-110); MAGNESIUM 1.7 mg/dL (1.7-2.2); PHOSPHOROUS 3.6 mg/dL (2.5-4.5); POTASSIUM 4.4 mmol/L (3.6-5.0); SODIUM 141 mmol/L (132-148); TOTAL PROTEIN 5.3 g/dL (5.8-8.3)
[2017-02-02] MEDS: Magnesium Oxide 400 mg Tab UD PO SCH ×2 (09:37→17:57)
[2017-02-02] MEDS: Potassium Chloride 20 mEq ER Tab PO SCH (09:37)
[2017-02-02] MEDS: Azithromycin 500MG/NS 250ml 500 MG/250 ML BAG IVPB SCH (09:48)
[2017-02-02] MEDS: cefTRIAXone 1 gm 1 GM/100 ML BAG IVPB SCH (11:36)
[2017-02-02] MEDS: Pantoprazole 40 mg EC Tab PO SCH (11:36)
--- NOTE | 2017-02-02 13:12 | PN ---
DATE: 02/02/2017 REASON FOR CONSULTATION: Followup decompensated congestive heart failure, atrial fibrillation with rapid ventricular rate, and shortness of breath. SUBJECTIVE: The patient feels little bit better, but still short of breath, while going to bathroom feels short of breath. OBJECTIVE: VITAL SIGNS: Temperature is afebrile, heart rate is 115, and blood pressure is 126/54. HEENT: PERRLA. Extraocular ocular muscles are intact. NECK: Supple. No carotid bruit or thyromegaly. CHEST: Clear to auscultation. HEART: S1 and S2 regular. ABDOMEN: Soft. EXTREMITIES: Clubbing and cyanosis negative. LABORATORY DATA: Blood workup as follows: WBC of 6, hemoglobin of 11, hematocrit of 36.2, and platelet count of 138. Chemistry shows sodium of 141, potassium of 4.1, chloride of 105, carbon dioxide of 39, anion gap of 9, BUN of 26, and creatinine of 0.9. DIAGNOSTIC DATA: The patient underwent echocardiography yesterday that shows ejection fraction 35%, severely dilated left atrium more than 6 cm, moderate mitral regurgitation, mild tricuspid regurgitation, left ventricular systolic pressure of 27, and [id number] aortic regurgitation. IMPRESSION: Decompensated congestive heart failure, cardiomyopathy, history of atrial fibrillation, history of hyperthyroidism, thyrotoxicosis status post Tapazole treatment, history of atrial fibrillation in the past status post radiofrequency ablation. RECOMMENDATIONS: Continue Eliquis. Continue verapamil to control the heart rate. Add low dose beta-gretta and continue low dose of lisinopril. Increase propranolol 10 mg, we will increase to 20 mg t.i.d. EDD cardioversion because of the severe left atrial dilatation. We will try to avoid EDD cardioversion and consider radiofrequency ablation because the patient converted would not stay long for sinus rhythm. Jose Escalante MD
--- NOTE | 2017-02-02 13:53 | CP.PCM.PN ---
Addendum entered and electronically signed by Lalitha Gonzalez DO 02/02/17 14:08: Correction: Urine cx growing gram positive cocci Original Note: <Lalitha Gonzalez - Last Filed: 02/02/17 14:05> Subjective - Date & Time of Evaluation Date of Evaluation: 02/02/17 Time of Evaluation: 13:49 - Subjective Subjective: Hospitalist Service Progress Note: Patient seen and examined at bedside. Per nursing no acute events overnight. Patient is doing well, shortness of breath improving. Still coughing. Ambulating and tolerating diet. Denies headaches, dizziness, cp, palpitations, abdominal pain, urinary symptoms. Objective - Vital Signs/Intake and Output Vital Signs (last 24 hours): Temp Pulse Resp BP Pulse Ox 98.3 F 95 H 18 98/78 L 99 02/02/17 12:00 02/02/17 12:00 02/02/17 12:00 02/02/17 12:00 02/02/17 05:58 Intake and Output: 02/02/17 02/02/17 06:59 18:59 Intake Total 780 Output Total 4 Balance 776 - Medications Medications: Current Medications Acetaminophen (Tylenol 325mg Tab) 650 mg PO Q6H PRN PRN Reason: Headache Last Admin: 02/01/17 03:22 Dose: 650 mg Apixaban (Eliquis) 5 mg PO BID [facility] PRN Reason: Protocol Last Admin: 02/02/17 09:38 Dose: 5 mg Benzonatate (Tessalon Perles) 100 mg PO TID [facility] Furosemide (Lasix) 40 mg IV TID [facility]MARIA Last Admin: 02/02/17 11:29 Dose: Not Given Ceftriaxone Sodium (Rocephin 1 Gram Ivpb) 1 gm in 100 mls @ 100 mls/hr IVPB DAILY [facility] PRN Reason: Protocol Last Admin: 02/02/17 11:36 Dose: 100 mls/hr Azithromycin (Zithromax 500mg In Ns) 500 mg in 250 mls @ 167 mls/hr IVPB DAILY [facility] PRN Reason: Protocol Last Admin: 02/02/17 09:48 Dose: 167 mls/hr Levalbuterol HCl (Xopenex) 1.25 mg IH [id number] PRN PRN Reason: Shortness of Breath Lisinopril (Zestril) 2.5 mg PO DAILY [facility] Last Admin: 02/02/17 09:37 Dose: 2.5 mg Magnesium Oxide (Mag-Ox) 400 mg PO BID [facility] Stop: 02/02/17 23:59 Last Admin: 02/02/17 09:37 Dose: 400 mg Pantoprazole Sodium (Protonix Ec Tab) 40 mg PO DAILY [facility] Last Admin: 02/02/17 11:36 Dose: 40 mg Potassium Chloride (K-Dur 20 Meq Er Tab) 20 meq PO DAILY [facility] Last Admin: 02/02/17 09:37 Dose: 20 meq Propranolol HCl (Inderal) 20 mg PO TID [facility] Last Admin: 02/02/17 11:30 Dose: Not Given Verapamil HCl (Calan Tab) 40 mg PO TID [facility] Last Admin: 02/02/17 09:37 Dose: 40 mg - Labs Labs: 02/02/17 06:45 02/02/17 06:45 PT 14.6 Seconds (9.9-11.8) H 01/31/17 16:05 INR 1.35 (0.93-1.08) H 01/31/17 16:05 APTT 29.9 Seconds (23.7-30.8) 01/31/17 16:05 - Constitutional Appears: Non-toxic, No Acute Distress - Head Exam Head Exam: ATRAUMATIC, NORMAL INSPECTION - Eye Exam Eye Exam: EOMI, Normal appearance - ENT Exam ENT Exam: Mucous Membranes Moist - Neck Exam Neck Exam: Full ROM - Respiratory Exam Respiratory Exam: Decreased Breath Sounds, Rales, Wheezes, NORMAL BREATHING PATTERN. absent: Clear to Ausculation Bilateral, Rhonchi - Cardiovascular Exam Cardiovascular Exam: Irregular Rhythm, +S1, +S2 - GI/Abdominal Exam GI & Abdominal Exam: Soft. absent: Guarding, Rigid, Tenderness, Rebound - Extremities Exam Extremities Exam: Pedal Edema. absent: Calf Tenderness Additional comments: +1 pitting edema bilaterally - Neurological Exam Neurological Exam: Alert, Awake, Oriented x3 - Psychiatric Exam Psychiatric exam: Normal Affect, Normal Mood - Skin Skin Exam: Normal Color, Warm Assessment and Plan - Assessment and Plan (Free Text) Assessment: Patient is a 61 year old female with a past medical history of atrial fibrillation s/p ablation and hypertension who is being admitted to the hospital for evaluation and treatment of SOB and palpitations. Plan: 1. Recurrent Paroxysmal Atrial Fibrillation with RVR - Stable, afebrile - S/P ablation in 2015 - Afib currently on telemetry - s/p Cardizem 20mg IV bolus, cardizem drip - On Verapamil 40 mg TID, Propanolol 20 mg TID - [id number]: 3 on Eliquis 5mg BID - Troponins 0.01 - 0.02 - 0.02 - Echo showing LVEF 35%, moderate MR, LA severely dilated - Cardiology consult- Dr. Huang- recommendations appreciated 2. Acute on chronic CHF Exacerbation - BNP noted at 5600 - CXR on admission showing cardiomegaly and mild CHF - Lasix 40 IV TID - F/U repeat CXR - Daily weights, strict I/Os - Cardiology consult- appreciate recommendations 3. Acute bronchitis - On Rocephin and Azithromycin (day 3) - Influenza negaive - F/U sputum cx - Xopenex Q4H prn - Added tessalon perles 4. Hypertension - Lisinopril 2.5mg daily as per cardiology, kidney function was discussed - Continue to monitor BPs 5. Lower Extremity Edema - Likely secondary to CHF exacerbtion - LE dopplers negative for DVT 6. Transaminitis - Likely secondary to passive congestion from CHF - Improving - Hep panel negative - Continue to monitor 7. Urinary Tract Infection - UA showing small leuk esterase and bacteria - On azithromycin and Rocephin (day 3) - urine cx growing ecoli, f/u sensitivites 8. Transient Hyperthyroidism - TSH and T4 WNL GI/DVT PPX - Protonix - Eliquis 5 mg BID <Lucinda Cheng - Last Filed: 02/03/17 18:18> Objective - Vital Signs/Intake and Output Vital Signs (last 24 hours): Temp Pulse Resp BP Pulse Ox 98.3 F 115 H 18 98/78 L 99 02/02/17 12:00 02/02/17 14:08 02/02/17 12:00 02/02/17 14:08 02/02/17 05:58 Intake and Output: 02/02/17 02/02/17 06:59 18:59 Intake Total 780 Output Total 4 Balance 776 - Medications Medications: Current Medications Acetaminophen (Tylenol 325mg Tab) 650 mg PO Q6H PRN PRN Reason: Headache Last Admin: 02/01/17 03:22 Dose: 650 mg Apixaban (Eliquis) 5 mg PO BID [facility] PRN Reason: Protocol Last Admin: 02/02/17 09:38 Dose: 5 mg Benzonatate (Tessalon Perles) 100 mg PO TID [facility] Last Admin: 02/02/17 14:08 Dose: 100 mg Furosemide (Lasix) 40 mg IV TID [facility] Last Admin: 02/02/17 14:06 Dose: Not Given Ceftriaxone Sodium (Rocephin 1 Gram Ivpb) 1 gm in 100 mls @ 100 mls/hr IVPB DAILY [facility] PRN Reason: Protocol Last Admin: 02/02/17 11:36 Dose: 100 mls/hr Azithromycin (Zithromax 500mg In Ns) 500 mg in 250 mls @ 167 mls/hr IVPB DAILY [facility] PRN Reason: Protocol Last Admin: 02/02/17 09:48 Dose: 167 mls/hr Levalbuterol HCl (Xopenex) 1.25 mg IH [id number] PRN PRN Reason: Shortness of Breath Lisinopril (Zestril) 2.5 mg PO DAILY [facility] Last Admin: 02/02/17 09:37 Dose: 2.5 mg Magnesium Oxide (Mag-Ox) 400 mg PO BID [facility] Stop: 02/02/17 23:59 Last Admin: 02/02/17 09:37 Dose: 400 mg Pantoprazole Sodium (Protonix Ec Tab) 40 mg PO DAILY [facility] Last Admin: 02/02/17 11:36 Dose: 40 mg Potassium Chloride (K-Dur 20 Meq Er Tab) 20 meq PO DAILY [facility] Last Admin: 02/02/17 09:37 Dose: 20 meq Propranolol HCl (Inderal) 20 mg PO TID [facility] Last Admin: 02/02/17 14:05 Dose: Not Given Verapamil HCl (Calan Tab) 40 mg PO TID [facility] Last Admin: 02/02/17 14:08 Dose: 40 mg - Labs Labs: 02/02/17 06:45 02/02/17 06:45 PT 14.6 Seconds (9.9-11.8) H 01/31/17 16:05 INR 1.35 (0.93-1.08) H 01/31/17 16:05 APTT 29.9 Seconds (23.7-30.8) 10/09/17 16:05 Attending/Attestation - Attestation I have personally seen and examined this patient.: Yes I have fully participated in the care of the patient.: Yes I have reviewed all pertinent clinical information, including history, physical exam and plan: Yes Notes (Text): I have seen and examined the patient at bedside. Agree with the above note with the following additions/ exceptions: Briefly this is 61 year old female with history of atrial fibrillation s/p ablation, hypertension, transient hyperthyroidism, systolic CHF (35%), valvular heart disease, Moderate AR, moderate to severe AR who is being admitted for evaluation of sob, bilateral leg edema, elevated BNP and cough. She was found to have acute on chronic CHF and new onset atrial fibrillation. Serial cardiac iso negative. As the HR is still high, propranolol was increased to 20 TID. TFT's within normal limits. Continue verapamil, Eliquis, lisinopril. Lasix was also increased to 40 IV tid. B/L LE US is negative. She has transaminitis secondary to passive congestion from CHF. Hep panel is negative. Patient is on rocephin and zithro for acute bronchitis. UCx is growing <10,000 colonies of GPC. Upon discharge patient will follow up with Dr Quick and Dr Escalante. Dr Lucinda Cheng
[2017-02-03 06:35] LABS: BASO # 0.03 K/mm3 (0.0-2.0); BASO % 0.5 % (0.0-3.0); EOS # 0.3 (0.0-0.7); EOS % 4.4 % (1.5-5.0); GRAN # 3.59 (1.4-6.5); GRAN % 58.5 % (50.0-68.0); HEMATOCRIT 36.2 % (36.0-48.0); LYMPH # 1.5 (1.2-3.4); MEAN CELL VOLUME 78.2 fl (80.0-105.0); MEAN CORPUSCULAR HEMOGLOBIN 23.8 pg (25.0-35.0); MEAN CORPUSCULAR HGB CONC 30.4 g/dl (31.0-37.0); MEAN PLATELET VOLUME 10.6 fl (7.0-11.0); MONO # 0.7 (0.1-0.6); MONO % 11.6 % (1.0-6.0); RED CELL DISTRIBUTION WIDTH 16.4 % (11.5-14.5); WHITE BLOOD COUNT 6.1 10^3/ul (4.5-11.0)
[2017-02-03 06:53] LABS: ALB/GLOB RATIO 1.3 (1.1-1.8); ALKALINE PHOSPHATASE 70 U/L (38-126); ALT/SGPT 49 U/L (7-56); AST/SGOT 21 U/L (14-36); BILIRUBIN,TOTAL 0.6 mg/dL (0.2-1.3); BLOOD UREA NITROGEN 24 mg/dL (7-21); CARBON DIOXIDE 35 mmol/L (21-33); CHLORIDE 100 mmol/L (98-107); GFR AFRICAN-AMERICAN > 60; GLUCOSE,RANDOM 91 mg/dL (70-110); POTASSIUM 4.3 mmol/L (3.6-5.0); SODIUM 141 mmol/L (132-148); TOTAL PROTEIN 5.1 g/dL (5.8-8.3)
--- NOTE | 2017-02-03 08:06 | RAD ---
HISTORY: CHF. Compare to see improvement. COMPARISON: 01/31/2017 TECHNIQUE: Chest PA and lateral FINDINGS: LUNGS: No active pulmonary disease. PLEURA: No significant pleural effusion identified. No pneumothorax apparent. CARDIOVASCULAR: There is slight improvement in vascular congestion right greater than left. There is mild cardiomegaly OSSEOUS STRUCTURES: No significant abnormalities. VISUALIZED UPPER ABDOMEN: Normal. OTHER FINDINGS: None. IMPRESSION: There is slight improvement in vascular congestion right greater than left. There is mild cardiomegaly
[2017-02-03] MEDS: Potassium Chloride 20 mEq ER Tab PO SCH (11:13)
[2017-02-03] MEDS: Pantoprazole 40 mg EC Tab PO SCH (11:16)
[2017-02-03] MEDS: cefTRIAXone 1 gm 1 GM/100 ML BAG IVPB SCH (11:18)
[2017-02-03] MEDS: Azithromycin 500MG/NS 250ml 500 MG/250 ML BAG IVPB SCH ×2 (11:24→11:29)
--- NOTE | 2017-02-03 13:49 | CP.PCM.PN ---
<Adilene Valle - Last Filed: 02/03/17 13:46> Subjective - Date & Time of Evaluation Date of Evaluation: 02/03/17 Time of Evaluation: 08:30 - Subjective Subjective: Dr. Cheng Service Pt was seen and examined at bedside. No acute complaints at this time. Pt cough has improved, and sputum cultures were collected. No acute or adverse events overnight as per nursing staff. Pt denied fever, chills, sob, chest pains, abdominal pains, n/v/d/c or urinary symptoms. Objective - Vital Signs/Intake and Output Vital Signs (last 24 hours): Temp Pulse Resp BP Pulse Ox 98.8 F 117 H 20 139/86 97 02/03/17 05:51 02/03/17 11:19 02/03/17 05:51 02/03/17 11:31 02/03/17 05:51 Intake and Output: 02/03/17 02/03/17 06:59 18:59 Intake Total 420 Balance 420 - Medications Medications: Current Medications Acetaminophen (Tylenol 325mg Tab) 650 mg PO Q6H PRN PRN Reason: Headache Last Admin: 02/01/17 03:22 Dose: 650 mg Apixaban (Eliquis) 5 mg PO BID [facility] PRN Reason: Protocol Last Admin: 02/03/17 11:12 Dose: 5 mg Benzonatate (Tessalon Perles) 100 mg PO TID [facility] Last Admin: 02/03/17 11:19 Dose: 100 mg Furosemide (Lasix) 40 mg IV TID [facility] Stop: 02/03/17 23:59 Last Admin: 02/03/17 11:15 Dose: 40 mg Furosemide (Lasix) 40 mg PO 0800,1400 [facility] Ceftriaxone Sodium (Rocephin 1 Gram Ivpb) 1 gm in 100 mls @ 100 mls/hr IVPB DAILY [facility] PRN Reason: Protocol Last Admin: 02/03/17 11:18 Dose: 100 mls/hr Azithromycin (Zithromax 500mg In Ns) 500 mg in 250 mls @ 167 mls/hr IVPB DAILY [facility] PRN Reason: Protocol Last Admin: 02/03/17 11:29 Dose: 167 mls/hr Levalbuterol HCl (Xopenex) 1.25 mg IH [id number] PRN PRN Reason: Shortness of Breath Lisinopril (Zestril) 2.5 mg PO DAILY [facility] Last Admin: 02/03/17 11:19 Dose: 2.5 mg Pantoprazole Sodium (Protonix Ec Tab) 40 mg PO DAILY [facility] Last Admin: 02/03/17 11:16 Dose: 40 mg Propranolol HCl (Inderal) 20 mg PO TID [facility] Last Admin: 02/03/17 11:31 Dose: 20 mg Spironolactone (Aldactone) 25 mg PO DAILY [facility] Verapamil HCl (Calan Tab) 40 mg PO TID [facility] Stop: 02/03/17 23:59 Last Admin: 02/03/17 11:12 Dose: 40 mg Verapamil HCl (Calan Sr Tab) 120 mg PO DAILY [facility] - Labs Labs: 02/03/17 06:15 02/03/17 06:15 PT 14.6 Seconds (9.9-11.8) H 01/31/17 16:05 INR 1.35 (0.93-1.08) H 01/31/17 16:05 APTT 29.9 Seconds (23.7-30.8) 01/31/17 16:05 - Constitutional Appears: No Acute Distress - Head Exam Head Exam: ATRAUMATIC, NORMAL INSPECTION, NORMOCEPHALIC - Eye Exam Eye Exam: EOMI, Normal appearance, PERRL Pupil Exam: NORMAL ACCOMODATION, PERRL - ENT Exam ENT Exam: Mucous Membranes Moist, Normal Exam - Neck Exam Neck Exam: Full ROM, Normal Inspection. absent: Lymphadenopathy - Respiratory Exam Respiratory Exam: Rales, NORMAL BREATHING PATTERN Additional comments: minimal - Cardiovascular Exam Cardiovascular Exam: RRR, +S1, +S2 - GI/Abdominal Exam GI & Abdominal Exam: Soft, Normal Bowel Sounds. absent: Tenderness - Extremities Exam Extremities Exam: Full ROM, Normal Capillary Refill, Normal Inspection. absent : Joint Swelling, Pedal Edema - Neurological Exam Neurological Exam: Alert, Awake, CN II-XII Intact, Normal Gait, Oriented x3 - Psychiatric Exam Psychiatric exam: Normal Affect, Normal Mood - Skin Skin Exam: Dry, Intact, Normal Color, Warm Assessment and Plan - Assessment and Plan (Free Text) Assessment: Patient is a 61 year old female with a past medical history of atrial fibrillation s/p ablation and hypertension who is being admitted to the hospital for evaluation and treatment of SOB and palpitations. 1. Recurrent Paroxysmal Atrial Fibrillation with RVR - Stable, afebrile - S/P ablation in 2014 - Afib, NSR now - s/p Cardizem 20mg IV bolus, cardizem drip - On Verapamil 40 mg TID, Propanolol increased to 20 mg TID, low dose ACEi added - [id number]: 3 on Eliquis 5mg BID - Troponins trended - Echo showing LVEF 35%, moderate MR, LA severely dilated - Cardiology consult- Dr. Huang- recommendations appreciated, Dr. Escalante adjusted Lasix to 40 PO BID, MUGA planned for today. FU for ablation 2. Acute on chronic CHF Exacerbation - BNP noted at 5600 - CXR on admission showing cardiomegaly and mild CHF, FU CXR - Lasix 40 PO BID - F/U repeat CXR - Daily weights, strict I/Os - Cardiology consult- appreciate recommendations 3. Acute bronchitis - On Rocephin and Azithromycin (day 4), consider doxycycline upon dc - Influenza negaive - F/U sputum cx - Xopenex Q4H prn - stacey terrazas 4. Hypertension - Lisinopril 2.5mg daily as per cardiology, kidney function was discussed - Continue to monitor BPs 5. Lower Extremity Edema - Likely secondary to CHF exacerbtion - LE dopplers negative for DVT 6. Transaminitis - Likely secondary to passive congestion from CHF - Improving - Hep panel negative - Continue to monitor 7. Urinary Tract Infection - UA showing small leuk esterase and bacteria - On azithromycin and Rocephin (day 4) - urine cx growing ecoli, f/u sensitivites 8. Transient Hyperthyroidism - TSH and T4 WNL GI/DVT PPX - Protonix - Eliquis 5 mg BID Seen reviewed and discussed with attending <Lucinda Cheng - Last Filed: 02/03/17 18:22> Objective - Vital Signs/Intake and Output Vital Signs (last 24 hours): Temp Pulse Resp BP Pulse Ox 98.8 F 117 H 20 134/70 97 02/03/17 05:51 02/03/17 11:19 02/03/17 05:51 02/03/17 18:03 02/03/17 05:51 Intake and Output: 02/03/17 02/03/17 06:59 18:59 Intake Total 420 Balance 420 - Medications Medications: Current Medications Acetaminophen (Tylenol 325mg Tab) 650 mg PO Q6H PRN PRN Reason: Headache Last Admin: 02/01/17 03:22 Dose: 650 mg Apixaban (Eliquis) 5 mg PO BID [facility] PRN Reason: Protocol Last Admin: 02/03/17 18:00 Dose: 5 mg Azithromycin (Zithromax) 250 mg PO DAILY [facility] PRN Reason: Protocol Stop: 02/04/17 23:59 Benzonatate (Tessalon Perles) 100 mg PO TID [facility] Last Admin: 02/03/17 18:00 Dose: 100 mg Furosemide (Lasix) 40 mg IV TID [facility] Stop: 02/03/17 23:59 Last Admin: 02/03/17 18:03 Dose: 40 mg Furosemide (Lasix) 40 mg PO 0800,1400 [facility] Ceftriaxone Sodium (Rocephin 1 Gram Ivpb) 1 gm in 100 mls @ 100 mls/hr IVPB DAILY [facility] PRN Reason: Protocol Last Admin: 02/03/17 11:18 Dose: 100 mls/hr Levalbuterol HCl (Xopenex) 1.25 mg IH [id number] PRN PRN Reason: Shortness of Breath Lisinopril (Zestril) 2.5 mg PO DAILY [facility] Last Admin: 02/03/17 11:19 Dose: 2.5 mg Pantoprazole Sodium (Protonix Ec Tab) 40 mg PO DAILY [facility] Last Admin: 02/03/17 11:16 Dose: 40 mg Propranolol HCl (Inderal) 20 mg PO TID [facility] Last Admin: 02/03/17 18:05 Dose: 20 mg Spironolactone (Aldactone) 25 mg PO DAILY [facility] Verapamil HCl (Calan Tab) 40 mg PO TID [facility] Stop: 02/03/17 23:59 Last Admin: 02/03/17 18:00 Dose: 40 mg Verapamil HCl (Calan Sr Tab) 120 mg PO DAILY [facility] - Labs Labs: 02/03/17 06:15 02/03/17 06:15 PT 14.6 Seconds (9.9-11.8) H 01/31/17 16:05 INR 1.35 (0.93-1.08) H 01/31/17 16:05 APTT 29.9 Seconds (23.7-30.8) 01/31/17 16:05 Attending/Attestation - Attestation I have personally seen and examined this patient.: Yes I have fully participated in the care of the patient.: Yes I have reviewed all pertinent clinical information, including history, physical exam and plan: Yes Notes (Text): I have seen and examined the patient at bedside. Agree with the above note with the following additions/ exceptions: Briefly this is 61 year old female with history of atrial fibrillation s/p ablation, hypertension, transient hyperthyroidism, systolic CHF (35%), valvular heart disease, Moderate AR, moderate to severe AR who is being admitted for evaluation of sob, bilateral leg edema, elevated BNP and cough. She was found to have acute on chronic CHF and new onset atrial fibrillation. Serial cardiac iso negative. Continue propranolol, lasix, verapamil, Eliquis and lisinopril. MUGA scan will be done today. B/L LE US is negative. She has transaminitis secondary to passive congestion from CHF. Hep panel is negative. Patient is on rocephin and zithro for acute bronchitis. There is no EColi UTI which was mentioned in the residents note. Ucx showed <10,000 colonies. and patient is asymptomatic. No need treat with abx. Upon discharge patient will follow up with Dr Quick and Dr Escalante. Dr Lucinda Cheng
--- NOTE | 2017-02-03 15:58 | PN ---
DATE: 02/03/2017 REASON FOR CONSULTATION AND FOLLOWUP: Decompensated congestive heart failure, rapid ventricular rate, and shortness of breath. BRIEF CLINICAL HISTORY: Shortness of breath. SUBJECTIVE: The patient is a 61-year-old female. The patient denies any chest pain. Shortness of breath is improving. OBJECTIVE: GENERAL: Lying flat on the bed without any distress. VITAL SIGNS: Temperature afebrile, heart rate 100, and blood pressure 139/86. HEENT: PERRLA intact. NECK: Supple. No carotid bruits or thyromegaly. CHEST: Clear to auscultation. HEART: S1 and S2 regular. ABDOMEN: Soft. EXTREMITIES: Clubbing and cyanosis negative. LABORATORY DATA: Blood workup as follows. WBC is 6.1, hemoglobin 11, hematocrit 36.2, and platelet count 151. Chemistries show sodium 141, potassium 4.3, chloride 100, carbon dioxide of 35, anion gap of 10, BUN 24, creatinine 1, total protein 5.1, albumin 2.1, and albumin/globulin ratio 1.3. IMPRESSION: Decompensated congestive heart failure, cardiomyopathy, non-ischemic status post cardiac catheterization, coronary artery disease, status post cardiac catheterization on 12/16/2014 two years ago, ejection fraction 40% to 45%. Yesterday, echo shows 35% ejection fraction, [id number] aortic regurgitation, [id number] regurgitation, mild tricuspid regurgitation with systolic pressure of 47, atrial fibrillation status post radiofrequency ablation, and obesity. RECOMMENDATION: Continue diuretics, keep a negative fluid balance, continue Eliquis, continue low dose beta-gretta. We will get MUGA scan to assist LV function and possible discharge home tomorrow. We will get MUGA scan today and we will get chest x-ray PA and lateral tomorrow. Thank you in taking care of the patient. Jose Escalante MD
--- NOTE | 2017-02-03 19:46 | CARD ---
APPROVED REPORT INDICATION Atrial Fibrillation Congestive Heart Failure A FIB WITH RVR PROCEDURE The above named patient recieved 20 millicuries of Tc99m tagged red blood cells intravenously. After achieving equilibrium, gated imaging of 16/frame/cycle was performed utillizing Gamma camera interfaced with a digital computer and gated device. Gated imaging was then performed in the left anterior oblique, anterior, and the left lateral projections. Findings Left Ventricle: The quality of the study is good. The left ventricle is mildly enlarged. The right ventricle is normal in size. Wall motion study shows diffuse hypokinesis y of the left ventricle. RV wall motion is normal. The right atrium is akinetic. The remainder of the study is unremarkable. Impressions Moderate LV dysfunction with diffuse hypokinesis. LVEF = 34%. Normal RV wall motion. Akinetic right atrium suggesive of atrial fibrillation.
[2017-02-04 00:18] VITALS: O2SAT 100
[2017-02-04 06:58] LABS: BASO # 0.02 K/mm3 (0.0-2.0); BASO % 0.3 % (0.0-3.0); EOS # 0.3 (0.0-0.7); EOS % 4.8 % (1.5-5.0); GRAN # 3.23 (1.4-6.5); GRAN % 55.2 % (50.0-68.0); HEMATOCRIT 39.4 % (36.0-48.0); LYMPH # 1.7 (1.2-3.4); LYMPH % 29.5 % (22.0-35.0); MEAN CELL VOLUME 78.6 fl (80.0-105.0); MEAN CORPUSCULAR HEMOGLOBIN 24.2 pg (25.0-35.0); MEAN CORPUSCULAR HGB CONC 30.7 g/dl (31.0-37.0); MEAN PLATELET VOLUME 10.8 fl (7.0-11.0); MONO # 0.6 (0.1-0.6); MONO % 10.2 % (1.0-6.0); RED CELL DISTRIBUTION WIDTH 16.3 % (11.5-14.5); WHITE BLOOD COUNT 5.9 10^3/ul (4.5-11.0)
[2017-02-04 07:18] LABS: ALB/GLOB RATIO 1.3 (1.1-1.8); ALKALINE PHOSPHATASE 74 U/L (38-126); ALT/SGPT 50 U/L (7-56); AST/SGOT 20 U/L (14-36); BILIRUBIN,TOTAL 0.5 mg/dL (0.2-1.3); BLOOD UREA NITROGEN 22 mg/dL (7-21); CALCIUM 9.5 mg/dL (8.4-10.5); CARBON DIOXIDE 34 mmol/L (21-33); CHLORIDE 100 mmol/L (98-107); GFR AFRICAN-AMERICAN > 60; GLUCOSE,RANDOM 93 mg/dL (70-110); MAGNESIUM 1.9 mg/dL (1.7-2.2); PHOSPHOROUS 3.3 mg/dL (2.5-4.5); POTASSIUM 4.3 mmol/L (3.6-5.0); SODIUM 141 mmol/L (132-148); TOTAL PROTEIN 5.6 g/dL (5.8-8.3)
[2017-02-04] MEDS: Pantoprazole 40 mg EC Tab PO SCH (09:47)
[2017-02-04] MEDS: cefTRIAXone 1 gm 1 GM/100 ML BAG IVPB SCH (09:49)
[2017-02-04] MEDS ORDERED: Verapamil 120 mg ER Tab PO SCH (10:00)
--- NOTE | 2017-02-04 11:00 | RAD ---
HISTORY: F/U pneumonia and compare COMPARISON: 02/02/2017 TECHNIQUE: Chest PA and lateral FINDINGS: LUNGS: No active pulmonary disease. PLEURA: No significant pleural effusion identified. No pneumothorax apparent. CARDIOVASCULAR: Mild cardiomegaly OSSEOUS STRUCTURES: No significant abnormalities. VISUALIZED UPPER ABDOMEN: Normal. OTHER FINDINGS: None. IMPRESSION: No active disease.
--- NOTE | 2017-02-04 11:27 | CP.PCM.DIS ---
<Lalitha Gonzalez - Last Filed: 02/07/17 06:37> Provider - Provider Date of Admission: 01/31/17 17:17 Attending physician: Lucinda Cheng MD Primary care physician: Lora Quick MD Consults: Cardiology: Reina Time Spent in preparation of Discharge (in minutes): 32 Hospital Course - Lab Results Lab Results: Micro Results 01/31/17 21:47 Urine,Clean Catch Urine Culture - Final Gram Positive Cocci Most Recent Lab Values WBC 5.9 10^3/ul (4.5-11.0) 02/04/17 06:53 RBC 5.01 10^6/uL (3.5-6.1) 02/04/17 06:53 Hgb 12.1 g/dL (12.0-16.0) 02/04/17 06:53 Hct 39.4 % (36.0-48.0) 02/04/17 06:53 MCV 78.6 fl (80.0-105.0) L 02/04/17 06:53 MCH 24.2 pg (25.0-35.0) L 02/04/17 06:53 MCHC 30.7 g/dl (31.0-37.0) L 02/04/17 06:53 RDW 16.3 % (11.5-14.5) H 02/04/17 06:53 Plt Count 166 10^3/uL (120.0-450.0) 02/04/17 06:53 MPV 10.8 fl (7.0-11.0) 02/04/17 06:53 Gran % 55.2 % (50.0-68.0) 02/04/17 06:53 Lymph % (Auto) 29.5 % (22.0-35.0) 02/04/17 06:53 [place] % (Auto) 10.2 % (1.0-6.0) H 02/04/17 06:53 Eos % (Auto) 4.8 % (1.5-5.0) 02/04/17 06:53 Baso % (Auto) 0.3 % (0.0-3.0) 02/04/17 06:53 Gran # 3.23 (1.4-6.5) 02/04/17 06:53 Lymph # 1.7 (1.2-3.4) 02/04/17 06:53 [place] # 0.6 (0.1-0.6) 02/04/17 06:53 Eos # 0.3 (0.0-0.7) 02/04/17 06:53 Baso # 0.02 K/mm3 (0.0-2.0) 02/04/17 06:53 PT 14.6 Seconds (9.9-11.8) H 01/31/17 16:05 INR 1.35 (0.93-1.08) H 01/31/17 16:05 APTT 29.9 Seconds (23.7-30.8) 01/31/17 16:05 Sodium 141 mmol/L (132-148) 02/04/17 06:53 Potassium 4.3 mmol/L (3.6-5.0) 02/04/17 06:53 Chloride 100 mmol/L (98-107) 02/04/17 06:53 Carbon Dioxide 34 mmol/L (21-33) H 02/04/17 06:53 Anion Gap 11 (10-20) 02/04/17 06:53 BUN 22 mg/dL (7-21) H 02/04/17 06:53 Creatinine 0.9 mg/dL (0.7-1.2) 02/04/17 06:53 Est GFR ( Amer) > 60 02/04/17 06:53 Est GFR (Non-Af Amer) > 60 02/04/17 06:53 Random Glucose 93 mg/dL (70-110) 02/04/17 06:53 Hemoglobin A1c 6.0 % (4.2-6.5) 02/01/17 07:33 Calcium 9.5 mg/dL (8.4-10.5) 02/04/17 06:53 Phosphorus 3.3 mg/dL (2.5-4.5) 02/04/17 06:53 Magnesium 1.9 mg/dL (1.7-2.2) 02/04/17 06:53 Total Bilirubin 0.5 mg/dL (0.2-1.3) 02/04/17 06:53 AST 20 U/L (14-36) 02/04/17 06:53 ALT 50 U/L (7-56) 02/04/17 06:53 Alkaline Phosphatase 74 U/L (38-126) 02/04/17 06:53 Lactate Dehydrogenase 517 U/L (333-699) 01/31/17 16:05 Total Creatine Kinase 24 U/L (35-230) L 01/31/17 16:05 Troponin I 0.02 ng/mL 02/01/17 07:33 NT-Pro-B Natriuret Pep 5600 pg/mL (0-450) H 01/31/17 16:05 Total Protein 5.6 g/dL (5.8-8.3) L 02/04/17 06:53 Albumin 3.2 g/dL (3.0-4.8) 02/04/17 06:53 Globulin 2.4 gm/dL 02/04/17 06:53 Albumin/Globulin Ratio 1.3 (1.1-1.8) 02/04/17 06:53 Triglycerides 60 mg/dL (35-160) 02/01/17 07:33 Cholesterol 119 mg/dL (130-200) L 02/01/17 07:33 LDL Cholesterol Direct 89 mg/dL (0-129) 02/01/17 07:33 HDL Cholesterol 27 mg/dL (29-60) L 02/01/17 07:33 Free T4 1.49 ng/dL (0.78-2.19) 01/31/17 16:05 TSH 3rd Generation 0.57 mIU/mL (0.46-4.68) 01/31/17 16:05 Urine Color Yellow (YELLOW) 01/31/17 17:57 Urine Appearance Sl cloudy (CLEAR) 01/31/17 17:57 Urine pH 6.0 (4.7-8.0) 01/31/17 17:57 Ur Specific [place] 1.020 (1.005-1.035) 01/31/17 17:57 Urine Protein Trace mg/dL (<30 mg/dL) H 01/31/17 17:57 Urine Glucose (UA) Negative mg/dL (NEGATIVE) 01/31/17 17:57 Urine Ketones Negative mg/dL (NEGATIVE) 01/31/17 17:57 Urine Blood Negative (NEGATIVE) 01/31/17 17:57 Urine Nitrate Negative (NEGATIVE) 01/31/17 17:57 Urine Bilirubin Negative (NEGATIVE) 01/31/17 17:57 Urine Urobilinogen 0.2 E.U./dL (<1 E.U./dL) 01/31/17 17:57 Ur Leukocyte Esterase Small Domo/uL (NEGATIVE) H 01/31/17 17:57 Urine RBC 0 - 2 /hpf (0-2) 01/31/17 17:57 Urine WBC 2 - 5 /hpf (0-6) 10 17:57 Ur Epithelial Cells 1 - 3 /hpf (0-5) 01/31/17 17:57 Urine Bacteria Rare (NEG) 01/31/17 17:57 Hepatitis A IgM Ab Negative (NEGATIVE) 02/01/17 07:33 Hep Bs Antigen Negative (NEGATIVE) 02/01/17 07:33 Hep B Core IgM Ab Negative (NEGATIVE) 02/01/17 07:33 Hepatitis C Antibody Negative (NEGATIVE) 02/01/17 07:33 Influenza Typ A,B (EIA) Negative for flu a/b (NEGATIVE) 02/01/17 14:50 - Hospital Course Hospital Course: Patient is a 61 year old female with history of atrial fibrillation s/p ablation , hypertension, transient hyperthyroidism, systolic CHF (35%), valvular heart disease, moderate to severe AR who is being admitted for evaluation of sob, bilateral leg edema, elevated BNP and cough. Patient was found to have acute on chronic CHF and new onset atrial fibrillation. Serial cardiac iso were negative. B/L LE US is negative. Cardiology was consulted and on the case. Patient was started on Lasix, verapamil, Propranolol, Eliquis and Lisinopril. Echo showed . MUGA scan showed moderate LV dysfunction with diffuse hypokinesis , LVEF 35%. Patient has transaminitis secondary to passive congestion from CHF. Hep panel is negative. Transaminitis resolved. Patient was started on rocephin and zithro for acute bronchitis. Patient was also started on Xopenex and tessalon pearls. Ucx showed <10,000 colonies and patient is asymptomatic. On day of discharge, patient was doing well. Ambulating and tolerating diet. Patient was medically stable. Medications were reconciled and sent to her pharmacy. Patient instructed to follow up with PMD and Options Advisor within 1 week. Will need radiofrequency ablation as an outpatient. All questions and concerns were addressed. Discharge Exam - Head Exam Head Exam: ATRAUMATIC, NORMAL INSPECTION, NORMOCEPHALIC - Eye Exam Eye Exam: EOMI, Normal appearance Pupil Exam: NORMAL ACCOMODATION - ENT Exam ENT Exam: Mucous Membranes Moist - Neck Exam Neck exam: Full Rom - Respiratory Exam Respiratory Exam: Wheezes, NORMAL BREATHING PATTERN, UNREMARKABLE. absent: Rales, Rhonchi - Cardiovascular Exam Cardiovascular Exam: REGULAR RHYTHM, +S1, +S2 - GI/Abdominal Exam GI & Abdominal Exam: Normal Bowel Sounds, Soft. absent: Guarding, Rebound, Rigid, Tenderness - Rectal Exam Rectal Exam: Deferred - Extremities Exam Extremities exam: full ROM, pedal edema Additional comments: +1 pitting edema bilaterally - Back Exam Back exam: NORMAL INSPECTION - Neurological Exam Neurological exam: Alert, CN II-XII Intact, Normal Gait, Oriented x3 - Psychiatric Exam Psychiatric exam: Normal Affect, Normal Mood - Skin Skin Exam: Dry, Normal Color, Warm Discharge Plan - Discharge Medications Prescriptions: Apixaban [Eliquis] 5 mg PO BID #60 tab Benzonatate [Tessalon Perles] 100 mg PO TID #20 sgl Furosemide [Lasix] 40 mg PO 0800,1400 #60 tab Lisinopril [Zestril] 2.5 mg PO DAILY #30 tab Propranolol [Inderal] 20 mg PO TID #90 tab Spironolactone [Aldactone] 25 mg PO DAILY #30 tab Verapamil [Calan SR Tab] 120 mg PO DAILY #30 tab - Follow Up Plan Condition: STABLE Disposition: HOME/ ROUTINE Instructions: Heart Failure (DC), Atrial Fibrillation (DC), Heart Healthy Diet (DC) Additional Instructions: 1. Patient to follow up with PMD and Options Advisor within 1 week 2. Continue medications as prescribed 3. Will need Radiofrequency ablation as an outpatient Referrals: Lora uQick MD [Primary Care Provider] - <Lucinda Cheng - Last Filed: 02/14/17 15:10> Provider - Provider Date of Admission: 01/31/17 17:17 Attending physician: Lucinda Cheng MD Primary care physician: Lora Quick MD Time Spent in preparation of Discharge (in minutes): 35 Hospital Course - Lab Results Lab Results: Micro Results 01/31/17 21:47 Urine,Clean Catch Urine Culture - Final Gram Positive Cocci Most Recent Lab Values WBC 5.9 10^3/ul (4.5-11.0) 02/04/17 06:53 RBC 5.01 10^6/uL (3.5-6.1) 02/04/17 06:53 Hgb 12.1 g/dL (12.0-16.0) 02/04/17 06:53 Hct 39.4 % (36.0-48.0) 02/04/17 06:53 MCV 78.6 fl (80.0-105.0) L 02/04/17 06:53 MCH 24.2 pg (25.0-35.0) L 02/04/17 06:53 MCHC 30.7 g/dl (31.0-37.0) L 02/04/17 06:53 RDW 16.3 % (11.5-14.5) H 02/04/17 06:53 Plt Count 166 10^3/uL (120.0-450.0) 02/04/17 06:53 MPV 10.8 fl (7.0-11.0) 02/04/17 06:53 Gran % 55.2 % (50.0-68.0) 02/04/17 06:53 Lymph % (Auto) 29.5 % (22.0-35.0) 02/04/17 06:53 [place] % (Auto) 10.2 % (1.0-6.0) H 02/04/17 06:53 Eos % (Auto) 4.8 % (1.5-5.0) 02/04/17 06:53 Baso % (Auto) 0.3 % (0.0-3.0) 02/04/17 06:53 Gran # 3.23 (1.4-6.5) 02/04/17 06:53 Lymph # 1.7 (1.2-3.4) 02/04/17 06:53 [place] # 0.6 (0.1-0.6) 02/04/17 06:53 Eos # 0.3 (0.0-0.7) 02/04/17 06:53 Baso # 0.02 K/mm3 (0.0-2.0) 02/04/17 06:53 PT 14.6 Seconds (9.9-11.8) H 01/31/17 16:05 INR 1.35 (0.93-1.08) H 01/31/17 16:05 APTT 29.9 Seconds (23.7-30.8) 01/31/17 16:05 Sodium 141 mmol/L (132-148) 02/04/17 06:53 Potassium 4.3 mmol/L (3.6-5.0) 02/04/17 06:53 Chloride 100 mmol/L (98-107) 02/04/17 06:53 Carbon Dioxide 34 mmol/L (21-33) H 02/04/17 06:53 Anion Gap 11 (10-20) 02/04/17 06:53 BUN 22 mg/dL (7-21) H 02/04/17 06:53 Creatinine 0.9 mg/dL (0.7-1.2) 02/04/17 06:53 Est GFR ( Amer) > 60 02/04/17 06:53 Est GFR (Non-Af Amer) > 60 02/04/17 06:53 Random Glucose 93 mg/dL (70-110) 02/04/17 06:53 Hemoglobin A1c 6.0 % (4.2-6.5) 02/01/17 07:33 Calcium 9.5 mg/dL (8.4-10.5) 02/04/17 06:53 Phosphorus 3.3 mg/dL (2.5-4.5) 02/04/17 06:53 Magnesium 1.9 mg/dL (1.7-2.2) 02/04/17 06:53 Total Bilirubin 0.5 mg/dL (0.2-1.3) 02/04/17 06:53 AST 20 U/L (14-36) 02/04/17 06:53 ALT 50 U/L (7-56) 02/04/17 06:53 Alkaline Phosphatase 74 U/L (38-126) 02/04/17 06:53 Lactate Dehydrogenase 517 U/L (333-699) 01/31/17 16:05 Total Creatine Kinase 24 U/L (35-230) L 01/31/17 16:05 Troponin I 0.02 ng/mL 02/01/17 07:33 NT-Pro-B Natriuret Pep 5600 pg/mL (0-450) H 01/31/17 16:05 Total Protein 5.6 g/dL (5.8-8.3) L 02/04/17 06:53 Albumin 3.2 g/dL (3.0-4.8) 02/04/17 06:53 Globulin 2.4 gm/dL 02/04/17 06:53 Albumin/Globulin Ratio 1.3 (1.1-1.8) 02/04/17 06:53 Triglycerides 60 mg/dL (35-160) 02/01/17 07:33 Cholesterol 119 mg/dL (130-200) L 02/01/17 07:33 LDL Cholesterol Direct 89 mg/dL (0-129) 02/01/17 07:33 HDL Cholesterol 27 mg/dL (29-60) L 02/01/17 07:33 Free T4 1.49 ng/dL (0.78-2.19) 01/31/17 16:05 TSH 3rd Generation 0.57 mIU/mL (0.46-4.68) 01/31/17 16:05 Urine Color Yellow (YELLOW) 01/31/17 17:57 Urine Appearance Sl cloudy (CLEAR) 01/31/17 17:57 Urine pH 6.0 (4.7-8.0) 01/31/17 17:57 Ur Specific [place] 1.020 (1.005-1.035) 01/31/17 17:57 Urine Protein Trace mg/dL (<30 mg/dL) H 01/31/17 17:57 Urine Glucose (UA) Negative mg/dL (NEGATIVE) 01/31/17 17:57 Urine Ketones Negative mg/dL (NEGATIVE) 01/31/17 17:57 Urine Blood Negative (NEGATIVE) 01/31/17 17:57 Urine Nitrate Negative (NEGATIVE) 01/31/17 17:57 Urine Bilirubin Negative (NEGATIVE) 01/31/17 17:57 Urine Urobilinogen 0.2 E.U./dL (<1 E.U./dL) 01/31/17 17:57 Ur Leukocyte Esterase Small Domo/uL (NEGATIVE) H 01/31/17 17:57 Urine RBC 0 - 2 /hpf (0-2) 01/31/17 17:57 Urine WBC 2 - 5 /hpf (0-6) 01/31/17 17:57 Ur Epithelial Cells 1 - 3 /hpf (0-5) 01/31/17 17:57 Urine Bacteria Rare (NEG) 01/31/17 17:57 Hepatitis A IgM Ab Negative (NEGATIVE) 02/01/17 07:33 Hep Bs Antigen Negative (NEGATIVE) 02/01/17 07:33 Hep B Core IgM Ab Negative (NEGATIVE) 02/01/17 07:33 Hepatitis C Antibody Negative (NEGATIVE) 02/01/17 07:33 Influenza Typ A,B (EIA) Negative for flu a/b (NEGATIVE) 02/01/17 14:50 Attending/Attestation - Attestation I have personally seen and examined this patient.: Yes I have fully participated in the care of the patient.: Yes I have reviewed all pertinent clinical information, including history, physical exam and plan: Yes Notes (Text): I have seen and examined the patient at bedside. Agree with the above note with the following additions/ exceptions: Briefly this is 61 year old female with history of atrial fibrillation s/p ablation, hypertension, transient hyperthyroidism, systolic CHF (35%), valvular heart disease, moderate to severe AR who is being admitted for evaluation of sob, bilateral leg edema, elevated BNP and cough. She was found to have acute on chronic CHF and new onset atrial fibrillation. Serial cardiac iso negative. Continue propranolol, lasix, verapamil, Eliquis and lisinopril. MUGA scan showed ef of 35%.. B/L LE US is negative. She has transaminitis secondary to passive congestion from CHF. Hep panel is negative. Patient completed antibiotics course for acute bronchitis. Upon discharge patient will follow up with Dr Quick and Dr Escalante. Dr Lucinda Cheng
[2017-02-04 12:31] VITALS: BP 131/81; RESP 19; TEMP 98.1
--- NOTE | 2017-02-04 14:02 | PN ---
DATE: 02/04/2017 REASON FOR CONSULTATION AND FOLLOWUP: Decompensated congestive heart failure, atrial fibrillation with rapid ventricular rate, and shortness of breath secondary to systolic dysfunction acute on chronic. SUBJECTIVE: The patient feels a lot better, lying flat on the bed, going to chest x-ray. OBJECTIVE/PHYSICAL EXAMINATION: GENERAL: Not in apparent distress. Lying flat on the bed. VITAL SIGNS: Temperature is afebrile, heart rate is 104, and blood pressure is 105/80. HEENT: PERRLA. Extraocular muscles are intact. NECK: Supple. No carotid bruit or thyromegaly. CHEST: Clear to auscultation. HEART: S1 and S2 regular. ABDOMEN: Soft. EXTREMITIES: Clubbing and cyanosis negative. LABORATORY DATA: Blood workup as follows: WBC of 5.9, hemoglobin of 12.0, hematocrit of 39.4, and platelet count of 166. Chemistries show sodium of 141, potassium of 4.3, chloride of 100, carbon dioxide of 34, anion gap of 11, BUN of 22, and creatinine of 0.9. Total protein of 5.6, albumin of 3.2, and albumin/globulin ratio 1.3. DIAGNOSTIC DATA: Chest x-ray done just now reviewed significant improvement from before congestive heart failure, significantly improved. The patient yesterday underwent MUGA scan that shows ejection fraction of 34%. IMPRESSION: Acute decompensated congestive heart failure secondary to systolic dysfunction, hypertension, hyperlipidemia, obesity, mitral regurgitation, tricuspid regurgitation, aortic regurgitation, status post cardiac catheterization on 12/16/2014, two years ago nonobstructive coronary artery disease, status post radiofrequency ablation with atrial fibrillation . RECOMMENDATIONS: Continue spironolactone 25 mg daily, continue verapamil 120 mg daily, continue low doses of propranolol at 20 mg t.i.d., continue diuretics 40 mg in the morning, 40 at 2:00 p.m., possible discharge today. Thank you in taking care of the patient, Bianca Huang. We will follow with you. The patient is okay to discharge on cardiology point of view. Jose Escalante MD [facility] # [id number]
[2017-02-04 14:47] VITALS: PULSE 110
== END 2017-02-04 15:17 | disposition home or self-care (01) | DRG 544 ==
LOC: ED 16:01 → ERH 17:17 → 2RNO 19:36
PROVIDERS: ADMIT Hospitalist; ATTEND Hospitalist
DX: I48.0 Paroxysmal atrial fibrillation (principal); I50.23 Acute on chronic systolic (congestive) heart failure; I08.3 Combined rheumatic disorders of mitral, aortic and tricuspid valves; I42.9 Cardiomyopathy, unspecified; I11.0 Hypertensive heart disease with heart failure; I37.1 Nonrheumatic pulmonary valve insufficiency; J20.9 Acute bronchitis, unspecified; E05.00 Thyrotoxicosis with diffuse goiter without thyrotoxic crisis or storm; I25.10 Atherosclerotic heart disease of native coronary artery without angina pectoris; E78.5 Hyperlipidemia, unspecified; E66.9 Obesity, unspecified; Z68.38 Body mass index [BMI] 38.0-38.9, adult; Z90.710 Acquired absence of both cervix and uterus; Z79.82 Long term (current) use of aspirin

== ENCOUNTER 2017-12-19 18:13 | Inpatient (IN) | payer BC ==
[2017-12-19 18:14] VITALS: PULSE 122
[2017-12-19 18:36] VITALS: BMI 39.1
--- NOTE | 2017-12-19 18:55 | ED PDOC ---
Arrival/HPI <Jean-Claude Patino - Last Filed: 12/19/17 20:18> - General Historian: Patient <Kade Patel - Last Filed: 12/20/17 14:40> - General Chief Complaint: Medical Clearance Time Seen by Provider: 12/19/17 18:46 - History of Present Illness Narrative History of Present Illness (Text): 12/19/17 18:48 62 y/o female, pmh including A.fibb(eliquis)/chf with EF 35%/Aortic regurgitation, nkda, send in by pmd Dr. Quick for shortness of breath on exertion and palpitation x 1 week. Pt. stated that she has a.fibb history with eliquis po, been having palpitation and shortness of breath on exertion for the past 1 week, no night sweat, no rash, no numbness or tingling, no rash, no other medical or psychological complaints. (Kade Patel) Past Medical History - Provider Review Nursing Documentation Reviewed: Yes - Infectious Disease Hx of Infectious Diseases: None - Tetanus Immunization Tetanus Immunization: Unknown - Cardiac Hx Cardiac Disorders: Yes Hx Hypertension: Yes - Pulmonary Hx Respiratory Disorders: No - Neurological Hx Neurological Disorder: No - HEENT Hx HEENT Disorder: No - Renal Hx Renal Disorder: No - Endocrine/Metabolic Hx Endocrine Disorders: No - Hematological/Oncological Hx Blood Disorders: No - Integumentary Hx Dermatological Disorder: No - Musculoskeletal/Rheumatological Hx Musculoskeletal Disorders: No - Gastrointestinal Hx Gastrointestinal Disorders: No - Genitourinary/Gynecological Hx Genitourinary Disorders: No - Psychiatric Hx Psychophysiologic Disorder: No Hx Substance Use: No - Surgical History Hx Hysterectomy: Yes - Anesthesia Hx Anesthesia Reactions: No Hx Malignant Hyperthermia: No - Suicidal Assessment Feels Threatened In Home Enviroment: No <Kade Patel - Last Filed: 12/20/17 14:40> Family/Social History - Physician Review Nursing Documentation Reviewed: Yes Family/Social History: Unknown Family HX Smoking Status: Never Smoked Hx Alcohol Use: No Hx Substance Use: No Hx Substance Use Treatment: No <Kade Patel - Last Filed: 12/20/17 14:40> Allergies/Home Meds <Jean-Claude Patino - Last Filed: 12/19/17 20:18> <Kade Patel - Last Filed: 12/20/17 14:40> Allergies/Adverse Reactions: Allergies No Known Allergies Allergy (Verified 12/19/17 18:36) Home Medications: Home Meds Medication Instructions Recorded Confirmed Aspirin [Aspirin EC] 81 mg PO DAILY 09/03/15 12/19/17 Cholecalciferol (Vitamin D3) 1,000 iu PO DAILY 09/03/15 12/19/17 [Vitamin D3] Multivitamin [Tis-Mrqwob-Kqzsb] 1 each PO DAILY 09/03/15 12/19/17 Omeprazole 40 mg PO DAILY 09/03/15 12/19/17 Review of Systems - Review of Systems Constitutional: absent: Fatigue, Fevers Eyes: absent: Vision Changes ENT: absent: Hearing Changes Respiratory: SOB. absent: Cough Cardiovascular: Palpitations. absent: Chest Pain Gastrointestinal: absent: Abdominal Pain, Nausea, Vomiting Genitourinary Female: absent: Dysuria Musculoskeletal: absent: Arthralgias, Back Pain Skin: absent: Rash, Pruritis Neurological: absent: Headache Psychiatric: absent: Anxiety, Depression, Suicidal Ideation <Kade Patel Q - Last Filed: 12/20/17 14:40> Physical Exam Vital Signs Reviewed: Yes Temperature: Afebrile Blood Pressure: Normal Pulse: Regular Respiratory Rate: Normal Appearance: Positive for: Well-Appearing, Non-Toxic, Comfortable Pain Distress: None Mental Status: Positive for: Alert and Oriented X 3 - Systems Exam Head: Present: Atraumatic, Normocephalic Pupils: Present: PERRL Extroacular Muscles: Present: EOMI Conjunctiva: Present: Normal Mouth: Present: Moist Mucous Membranes Neck: Present: Normal Range of Motion Respiratory/Chest: Present: Clear to Auscultation, Good Air Exchange. No: Respiratory Distress, Accessory Muscle Use Cardiovascular: Present: Regular Rate and Rhythm, Normal S1, S2, Other (1+ pedal edema noted bilateral lower extremity. ). No: Murmurs Abdomen: No: Tenderness, Distention, Peritoneal Signs Back: Present: Normal Inspection. No: CVA Tenderness, Midline Tenderness Upper Extremity: Present: Normal Inspection. No: Cyanosis, Edema Lower Extremity: Present: Normal Inspection. No: Edema Neurological: Present: GCS=15, CN II-XII Intact, Speech Normal. No: Motor Func Grossly Intact, Gait Normal, Memory Normal Skin: Present: Warm, Dry, Normal Color. No: Rashes Psychiatric: Present: Alert, Oriented x 3, Normal Insight, Normal Concentration <AmandaKade Q - Last Filed: 12/20/17 14:40> Vital Signs Temp Pulse Resp BP Pulse Ox 12/19/17 22:50 81 18 126/71 100 12/19/17 21:12 97.7 F 69 18 118/60 100 12/19/17 19:43 125 H 121/72 12/19/17 18:39 98.1 F 74 18 115/75 96 12/19/17 18:38 98.1 F 74 18 115/75 96 Medical Decision Making <Jean-Claude Patino - Last Filed: 12/19/17 20:18> - Critical Care Critical Care Minutes: 30 minutes Critical Care Time: Unstable - RAD Interpretation Shirring Machine Operator Automatic: Radiologist - EKG Interpretation Interpreted by ED Physician: Yes Type: 12 lead EKG Comparison: Com.w/previous EKG <Kade Patel Q - Last Filed: 12/20/17 14:40> ED Course and Treatment: 12/19/17 18:56 Differential: cardiac arrythmia vs. CHF vs. worsening of aortic regurgitation vs. pneumonia -Labs/cardiac enzyme/bnp/ua/magnesium -Chest xray -EKG -shelter monitor -Observe and reassess 12/19/17 19:19 -EKG: A.fibb @ 139 BPM with RVR, no ST elevation or depression, no T wave inversion, compared with previous ekg, cardizem 20mg IVP and drip started 12/19/17 20:08 -Chest xray show Cardiomegaly. No interval pulmonary vascular congestion identified. -Labs show no acute findings except renal insufficiency BUN 33 and creatine 1.5 -Troponin within normal limit -BNP show 2760 from 564 -UA ordered and pending result -Pt. HR came down to 50s, drip stopped, BP remained at 100s/60s, calling Dr. Quick for admission to telemetry and needs machine striper evaluation. Pt. is anticoagulated with eliquis now. -All labs and radiology result discussed with the patient. -Paging Dr. Quick for admission. 12/19/17 20:34 -I spoke to Dr. Quick about this case/labs/radiology result, request Dr. Huang for routine consult, will follow up any pending result, admit to tele and put in an order of troponin for her as she will follow up. -Dr. Patino evaluated the patient and agreed on the treatment/admission plan , he will put in the admission. (Kade Patel) - Critical Care Narrative Critical Care (Text): 12/19/17 20:09 a.fibb, cardiac arrythmia, IV cardizem and drip. (Kade Patel) - Lab Interpretations Lab Results: 12/19/17 19:21 12/19/17 19:21 Lab Results 12/19/17 19:21: WBC 6.7, RBC 5.00, Hgb 12.4, Hct 39.0, MCV 78.0 L, MCH 24.8 L, MCHC 31.8, RDW 15.9 H, Plt Count 138, MPV 11.5 H, Gran % 66.8, Lymph % (Auto) 24.4, [place] % (Auto) 7.0 H, Eos % (Auto) 1.5, Baso % (Auto) 0.3, Gran # 4.46, Lymph # (Auto) 1.6, [place] # (Auto) 0.5, Eos # (Auto) 0.1, Baso # (Auto) 0.02 12/19/17 19:21: Sodium 141, Potassium 4.7, Chloride 104, Carbon Dioxide 28, Anion Gap 14, BUN 33 H, Creatinine 1.5 H, Est GFR ( Amer) 42, Est GFR ( Non-Af Amer) 35, Random Glucose 96, Calcium 10.3, Magnesium 2.0, Total Bilirubin 0.6, AST 41 H D, ALT 44, Alkaline Phosphatase 99, Lactate Dehydrogenase 385, Total Creatine Kinase 29 L, Troponin I < 0.01, NT-Pro-B Natriuret Pep 2760 H, Total Protein 6.8, Albumin 3.9, Globulin 2.9, Albumin/ Globulin Ratio 1.3 - RAD Interpretation Radiology Orders: 12/19/17 18:57 CHEST PORTABLE [RAD] Stat 12/19/17 18:57 CHEST PORTABLE [RAD] Stat HISTORY: shortness of breath COMPARISON: Portable chest 02/21/2017. FINDINGS: LUNGS: No active pulmonary disease. PLEURA: Trace left pleural effusion not excluded. No right pleural effusion. No pneumothorax bilaterally. CARDIOVASCULAR: Stable cardiomegaly. No definite pulmonary vascular congestion in the interval. OSSEOUS STRUCTURES: No significant abnormalities. VISUALIZED UPPER ABDOMEN: Normal. OTHER FINDINGS: None. IMPRESSION: No interval acute cardiopulmonary disease appreciated. Cardiomegaly unchanged. No interval pulmonary vascular congestion identified. (Kade Patel) - EKG Interpretation EKG Interpretation (Text): 12/19/17 19:18 -EKG: A.fibb @ 139 BPM with RVR, no ST elevation or depression, no T wave inversion, compared with previous ekg. (Kade Patel) - Medication Orders Current Medication Orders: diltiaZEM IVPB 100mg in NS (Cardizem 100mg In Ns) 100 mls @ 5 mls/hr IV .Q20H PRN; Protocol; 5 MG/HR PRN Reason: TITRATE PER MD ORDER Last Admin: 12/20/17 03:56 Dose: 5 mg/hr, 5 mls/hr eMAR Start Stop Document 12/20/17 03:56 FG (Rec: 12/20/17 03:58 FG [id number]) Intravenous Solution Start Date 12/20/17 Start Time 03:58 MAR Pulse Rate Document 12/20/17 03:56 FG (Rec: 12/20/17 03:58 FG [id number]) Pulse Rate Pulse Rate (60-90) 72 Titration Intervention Document 12/20/17 03:56 FG (Rec: 12/20/17 03:58 FG [id number]) Titration Intake Waste Amount 0 Container Volume 100 Titration Dosing Titration Dose 5 IV Rate 5 Intake/Decrease Started Discontinued Medications Apixaban (Eliquis) 2.5 mg PO BID LUZMARIA PRN Reason: Protocol Last Admin: 12/20/17 09:33 Dose: 2.5 mg Diltiazem HCl (Cardizem) 20 mg IVP STAT STA Stop: 12/19/17 19:19 Last Admin: 12/19/17 19:43 Dose: 20 mg IVP Administration Document 12/19/17 19:43 HI (Rec: 12/19/17 19:43 VT [id number]) Charges for Administration # of IVP Administrations 1 MAR Pulse and Blood Pressure Document 12/19/17 19:43 HI (Rec: 12/19/17 19:43 VT [id number]) Pulse Pulse Rate (60-90) 125 Blood Pressure Blood Pressure (100/60-150/90) 121/72 Enoxaparin Sodium (Lovenox) 100 mg SC STAT STA PRN Reason: Protocol Stop: 12/20/17 10:10 Last Admin: 12/20/17 10:23 Dose: 100 mg Subcutaneous Administrations Document 12/20/17 10:23 KL (Rec: 12/20/17 10:23 KL [id number]) Injection Site MAR Injection Site Right Abdomen Charges for Administration # of Subcutaneous Administrations 1 diltiaZEM IVPB 100mg in NS (Cardizem 100mg In Ns) 100 mls @ 5 mls/hr IV .Q20H PRN; Protocol; 5 MG/HR PRN Reason: TITRATE PER MD ORDER Last Admin: 12/19/17 19:43 Dose: 5 mls/hr eMAR Start Stop Document 12/19/17 19:43 HI (Rec: 12/19/17 19:43 HI [id number]) Intravenous Solution Start Date 12/19/17 Start Time 19:43 - PA / CASTING DIRECTOR / Resident Statement STEFANI has reviewed & agrees with the documentation as recorded. STEFANI has examined the patient and agrees with the treatment plan. <Jean-Claude Patino - Last Filed: 12/19/17 20:18> - PA / CASTING DIRECTOR / Resident Statement STEFANI has reviewed & agrees with the documentation as recorded. STEFANI has examined the patient and agrees with the treatment plan. <Kade Patel - Last Filed: 12/20/17 14:40> Disposition/Present on Arrival <Jean-Claude Patino - Last Filed: 12/19/17 20:18> - Present on Arrival Any Indicators Present on Arrival: No History of DVT/PE: No History of Uncontrolled Diabetes: No Urinary Catheter: No History of Decub. Ulcer: No History Surgical Site Infection Following: None - Disposition Have Diagnosis and Disposition been Completed?: Yes Disposition Time: 19:20 Patient Plan: Admission, Observation, Telemetry <Kade Patel - Last Filed: 12/20/17 14:40> - Disposition Diagnosis: Atrial fibrillation, Congestive heart failure Disposition: HOSPITALIZED Patient Problems: Current Active Problems Problem Status Onset Atrial fibrillation Acute Congestive heart failure Acute Condition: STABLE
[2017-12-19] MEDS ORDERED: diltiaZEM IVPB 100mg in NS 100 ML IV PRN (19:18)
[2017-12-19 19:30] LABS: BASO # 0.02 K/mm3 (0.0-2.0); BASO % 0.3 % (0.0-3.0); EOS # 0.1 (0.0-0.7); EOS % 1.5 % (1.5-5.0); GRAN # 4.46 (1.4-6.5); GRAN % 66.8 % (50.0-68.0); HEMOGLOBIN 12.4 g/dL (12.0-16.0); LYMPH # 1.6 (1.2-3.4); LYMPH % 24.4 % (22.0-35.0); MEAN CORPUSCULAR HEMOGLOBIN 24.8 pg (25.0-35.0); MEAN CORPUSCULAR HGB CONC 31.8 g/dl (31.0-37.0); MEAN PLATELET VOLUME 11.5 fl (7.0-11.0); MONO # 0.5 (0.1-0.6); RED CELL DISTRIBUTION WIDTH 15.9 % (11.5-14.5); WHITE BLOOD COUNT 6.7 10^3/ul (4.5-11.0)
[2017-12-19 19:39] LABS: ALB/GLOB RATIO 1.3 (1.1-1.8); ALBUMIN 3.9 g/dL (3.0-4.8); ALT/SGPT 44 U/L (7-56); AST/SGOT 41 U/L (14-36); BLOOD UREA NITROGEN 33 mg/dL (7-21); CALCIUM 10.3 mg/dL (8.4-10.5); GFR NON-AFRICAN AMERICAN 35
[2017-12-19 19:59] LABS: B-TYPE NATRIURETIC PEPTIDE 2760 pg/mL (0-450); TROPONIN I < 0.01 ng/mL
[2017-12-19 23:38] LABS: URINE BILIRUBIN NEGATIVE (NEGATIVE); URINE BLOOD NEGATIVE (NEGATIVE); URINE GLUCOSE (UA) NEGATIVE (NEGATIVE); URINE LEUKOCYTE ESTERASE NEGATIVE Leu/uL (NEGATIVE); URINE PROTEIN NEGATIVE mg/dL (<30 mg/dL); URINE UROBILINOGEN 0.2 E.U./dL (<1 E.U./dL)
[2017-12-19 23:43] LABS: URINE APPEARANCE CLEAR (CLEAR); URINE COLOR YELLOW (YELLOW)
[2017-12-20] MEDS: diltiaZEM IVPB 100mg in NS 100 ML IV PRN ×3 (03:56→23:22)
[2017-12-20 06:41] LABS: ALB/GLOB RATIO 1.3 (1.1-1.8); ALBUMIN 3.7 g/dL (3.0-4.8); ALT/SGPT 39 U/L (7-56); AST/SGOT 29 U/L (14-36); BLOOD UREA NITROGEN 29 mg/dL (7-21); CALCIUM 10.1 mg/dL (8.4-10.5); GFR NON-AFRICAN AMERICAN 50
--- NOTE | 2017-12-20 08:44 | RAD ---
Date of service: 12/19/2017 HISTORY: shortness of breath COMPARISON: Portable chest 02/21/2017. FINDINGS: LUNGS: No active pulmonary disease. PLEURA: Trace left pleural effusion not excluded. No right pleural effusion. No pneumothorax bilaterally. CARDIOVASCULAR: Stable cardiomegaly. No definite pulmonary vascular congestion in the interval. OSSEOUS STRUCTURES: No significant abnormalities. VISUALIZED UPPER ABDOMEN: Normal. OTHER FINDINGS: None. IMPRESSION: No interval acute cardiopulmonary disease appreciated. Cardiomegaly unchanged. No interval pulmonary vascular congestion identified.
--- NOTE | 2017-12-20 09:08 | CARD ---
APPROVED REPORT Date of service: 12/19/2017 EKG Measurement Heart [id number] <Conclusion> Atrial fibrillation with rapid ventricular response NSSTW changes No change
[2017-12-20] MEDS ORDERED: Enoxaparin 100 mg Syringe SC STA (10:09)
--- NOTE | 2017-12-20 20:44 | CON ---
Copied To: Jose Huang MD Attending MD: Jose Huang MD DATE: 12/20/2017 LOCATION: Patient in room 267, bed 2. REASON FOR ADMISSION: Atrial fibrillation, shortness of breath, aortic regurg, radiofrequency ablation x2. HISTORY OF PRESENT ILLNESS: The patient is a 62-year-old female known case of atrial fibrillation, she twice had ablation and ____ sinus rhythm, she also once had EDD cardioversion, but all these three times she went back into atrial fibrillation after sometime. Ablation was done by Dr. Tate, who is the media services director at [facility] and [facility]. The patient now since last one week was having palpitation and shortness of breath and weakness and EKG showed atrial fibrillation rapid rate, so patient went back into again atrial fibrillation rapid rate. The patient denied chest pain. She just felt very weak. PAST MEDICAL HISTORY: Significant for atrial fibrillation, status post EDD cardioversion, status post x2 ablation, history of obesity, hypertension, hyperlipidemia and hyperthyroidism. PREVIOUS CARDIAC WORKUP FOLLOWS: The patient had cardioversion on 01/10/2012, history of cardiac catheterization on 12/16/2014 showed normal coronaries, ejection fraction of 40% to 45%, right heart catheterization at that time revealed PA pressure of 52/40, mean is 30, pulmonary capillary wedge pressure was 20, cardiac output 3 L, patient had echo done on 02/01/2017, that showed ejection fraction 35%, [id number] aortic regurg, moderate mitral regurg, mild tricuspid regurg with RVSP of 27mmHg, left atrium was severely enlarged. The patient had a MUGA scan on 02/03/2017, that showed ejection fraction of 34%. MEDICATIONS: The patient's current medication include sotalol 120 mg p.o. b.i.d., aspirin 81 mg daily, Lasix 40 daily and Aldactone 25 daily. ALLERGIES: PATIENT DENIES ANY ALLERGIES. REVIEW OF SYSTEMS: All the systems reviewed, positive mentioned in the history, others were negative. PHYSICAL EXAMINATION VITAL SIGNS: Blood pressure 120/83, respirations 16, pulse 74, temperature 97.5. HEENT: Head is normocephalic. Eyes: Pupils normal. Conjunctivae normal. Nose and throat normal. NECK: JVP low. Carotids equal. THORAX: AP diameter normal. LUNGS: Few basal rales. CARDIOVASCULAR: S1 and S2, irregular rhythm due to atrial fibrillation. ABDOMEN: Soft, nontender. No organomegaly. EXTREMITIES: No clubbing. No cyanosis. LABORATORY DATA: WBC 6.7, hemoglobin 12.4, hematocrit 39, and platelets 138. Sodium 142, potassium 4.2. BUN 29, creatinine 1.1. AST 29, ALT 39, total protein 6.4, albumin 3.7. Chest x-ray mild cardiomegaly, as above the lungs clear. EKG showed atrial fibrillation with rapid ventricular rate around 140 per minute, nonspecific ST-T changes. DIAGNOSES: Recurrent atrial fibrillation, rapid ventricular rate, aortic regurgitation, mitral regurgitation, tricuspid regurgitation, left ventricular systolic failure with left ventricular systolic dysfunction. PLAN: The patient is on diltiazem 5 mg IV drip. The patient was given Lovenox 100 mg subcu stat, patient scheduled tomorrow, to be transferred for electrophysiology and possible ablation third time. The patient already had TSH which is 0.69. We will continue present therapy and the patient will be transferred tomorrow for electrophysiological study and possible ablation third time. Jose Huang MD
--- NOTE | 2017-12-21 04:42 | HP ---
12/20/17 Copied To: Lora Quick MD Attending MD: Lora Quick MD CHIEF COMPLAINT: Shortness of breath, palpitation. HISTORY OF PRESENT ILLNESS: Ms. Bianca Huang is a 62-year-old female with past medical history of atrial fibrillation, on Eliquis; congestive heart failure, ejection fraction 35%; aortic regurgitation; came with shortness of breath on exertion and palpitation from 1 week. The patient stated that she has atrial fibrillation and taking Eliquis. No night sweats. No fever. No chills. Has swelling of the legs also. No headache. No dizziness. No hematuria or hematochezia. PAST MEDICAL HISTORY: Hypertension, hysterectomy, cardiomyopathy, obesity, degenerative joint disease. FAMILY HISTORY: Father and mother noncontributory. HABITS: Never smoked. No drugs. No ethanol. ALLERGIES: THE PATIENT IS NOT ALLERGIC WITH ANY MEDICATIONS. HOME MEDICATIONS: Aspirin, vitamin D, multivitamins, omeprazole. REVIEW OF SYSTEMS: The patient was seen and examined at the bedside in her room, sitting on the chair, still feel shortness of breath, especially on walking, palpitation. No chest pain. No coughing. No abdominal pain. No nausea, vomiting or diarrhea. No hematuria or hematochezia. swelling of the leg. No rashes. No headache. PHYSICAL EXAMINATION: VITAL SIGNS: Temperature 98.1, pulse 74, respiratory rate 18, blood pressure 115/75, pulse oximetry 96%. HEENT: Head normocephalic, atraumatic. Eyes PERRLA. Extraocular muscles are intact. Conjunctivae clear. Nose patent. Mucous membrane moist. NECK: Supple. No carotid bruit. No JVD or thyromegaly. CHEST: Bilaterally symmetrical. HEART: S1 and S2 positive. LUNGS: Clear to auscultation. ABDOMEN: Soft. Bowel sounds positive. No organomegaly. EXTREMITIES: No edema. No cyanosis. NEUROLOGICAL: The patient is awake and alert. Moving all 4 extremities. No focal deficits LABORATORY DATA: White blood cells 6.7, hemoglobin 12.4, hematocrit 39, platelets 138. Sodium 141, potassium 4.7, BUN 33, creatinine 1.5, glucose 96. ASSESSMENT AND PLAN: Ms. Bianca Huang is a 62-year-old lady with renal insufficiency, came with shortness of breath, palpitation, came to know the patient has atrial fibrillation, exacerbation of congestive heart failure, obesity, noncompliant, status post transesophageal echocardiography cardioversion, status post 2 times ablation, hypertension, hypercholesterolemia, hyperthyroidism, having recurrent atrial fibrillation with rapid ventricular rate, aortic regurgitation and mitral regurgitation, tricuspid regurgitation, left ventricular systolic failure with left ventricle systolic dysfunction. The patient is on diltiazem drip, given Lovenox. The patient is scheduled for transfer tomorrow for electrophysiology, possibly ablation third time. Continue present treatment. Discussion done with Dr. Johansen about the patient's shortness of breath. Appreciate Dr. Esteban's input. Transfer tomorrow for electrophysiology per her beam warper. Gastrointestinal and deep venous thrombosis prophylaxis. Repeat labs. We will follow up. Lora Quick MD ANAHI
--- NOTE | 2017-12-21 06:03 | CON ---
Copied To: Jose Johansen MD Attending MD: Jose Johansen MD DATE: 12/20/2017 REFERRING PHYSICIAN: Lora Quick MD REASON FOR CONSULTATION: Sleep apnea syndrome, shortness of breath, recurrent AFib. HISTORY OF PRESENT ILLNESS: This is a 62-year-old female known to me from previous admission and office, noncompliant, known to have atrial fibrillation, has about 2 times ablation therapy done, back into AFib. Also, known to have a sleep apnea syndrome, but was noncompliant and CPAP machine was returned. From last one week, was having shortness of breath and palpitation, found to have AFIb with rapid ventricular response. Presently, no nausea, no vomiting, no diarrhea, no leg pain or leg swelling. PAST MEDICAL HISTORY: Recurrent atrial fibrillation, failed cardioversion, hypertension, sleep apnea syndrome, hyperlipidemia, hypothyroid. ALLERGIES: NONE KNOWN. SOCIAL HISTORY: Nonsmoker, nondrinker. FAMILY HISTORY: No significant cardiopulmonary disease reported. MEDICATIONS: She is on diltiazem IV drip, Eliquis 2.5 mg twice a day. REVIEW OF SYSTEMS: No headache, no rhinitis, and palpitation. Short of breath, chest pain. Admit to loud snoring, daytime sleepy and tired. No nausea. No vomiting or diarrhea. No leg pain or leg swelling. PHYSICAL EXAMINATION: VITAL SIGNS: Sitting at side of the bed, afebrile, heart rate is 124, respiratory rate is 20, blood pressure 133/100, pulse ox 99% on room air. HEENT: Moist mucous membrane. Crowded airway. Mallampati score is 4. NECK: Supple. No JVD. LUNGS: Have fair airflow with rhonchi. HEART: Irregularly irregular. ABDOMEN: Soft, nontender, no organomegaly. EXTREMITIES: No edema. NEUROLOGIC: Awake, alert and follows simple commands. LABORATORY DATA: Shows hemoglobin 12.4, hematocrit 39, WBC 6.7, platelet is 138. Sodium 142, potassium 4.2, chloride 102, bicarbonate 29, BUN 29, creatinine 1.1, glucose 94, calcium 10.1, phosphorus 3.6, magnesium 2, AST 29, ALT 39, alk phos is 87. Albumin is 3.7. TSH is 0.69. Urinalysis is unremarkable. Chest x-ray done in ER yesterday shows no interval changes, has cardiomegaly and some congestion. EKG on admission shows atrial fibrillation with rapid ventricular response rate of 139. IMPRESSION AND PLAN: Recurrent atrial fibrillation with rapid ventricular response, history of hypertension, obesity, sleep apnea syndrome. I had long discussion with the patient about atrial fibrillation with recurrent converting into atrial fibrillation with rapid ventricular response and relation to sleep apnea syndrome. We will place her on CPAP at 6 cm with 30% oxygen while sleeping. Will need to re-qualify her for sleep study, will do attended sleep study upon discharge as outpatient. Being followed by Cardiology, may need anticoagulation and beta gretta, also need to lose weight. Thank you and we will follow with you. Jose Johansen MD
[2017-12-21] MEDS: diltiaZEM IVPB 100mg in NS 100 ML IV PRN ×2 (06:50→17:12)
[2017-12-21] MEDS: Pantoprazole 40 mg EC Tab PO SCH (08:18)
[2017-12-21] MEDS: Multivitamin Therapeutic Tab PO SCH (10:52)
[2017-12-21] MEDS ORDERED: Enoxaparin 60 mg Syringe SC ONE (12:32)
[2017-12-21] MEDS ORDERED: Enoxaparin 100 mg Syringe SC ONE (12:46)
--- NOTE | 2017-12-21 13:23 | PN ---
Copied To: Jose Escalante MD Attending MD: Jose Escalante MD DATE: 12/21/2017 REASON FOR CONSULTATION AND FOLLOWUP: Atrial fibrillation, shortness of breath, aortic regurgitation, status post radiofrequency ablation. SUBJECTIVE: Denies any chest pain, shortness of breath, or any palpitation. Not tachycardic. Heart rate is well controlled on Cardizem drip. PHYSICAL EXAMINATION: VITAL SIGNS: Temperature afebrile, heart rate 72, blood pressure 111/70. HEENT: PERRLA. Extraocular muscles intact. NECK: Supple. No carotid bruits or thyromegaly. CHEST: Clear to auscultation. HEART: S1 and S2 regular. ABDOMEN: Soft. EXTREMITIES: Clubbing and cyanosis, negative. LABORATORY DATA: Blood workup as follows: WBC 6.7, hemoglobin 12.4, hematocrit 39, platelet count 138. Chemistry shows sodium 140, potassium 4.2, chloride 102, carbon dioxide 29, anion gap of 15, BUN 29, creatinine 1.1. TSH 0.69. Troponin 0.01. IMPRESSION: Atrial fibrillation, new onset, status post radiofrequency ablation twice; obesity; chronic obstructive pulmonary disease; aortic regurgitation; mild nonischemic cardiomyopathy; history of cardiac catheterization on 12/16/2013 showed normal coronaries, ejection fraction 40% to 45%. Last MUGA scan showed ejection fraction 34%. RECOMMENDATION: No anticoagulation at this time. Continue Cardizem. Transfer to [facility] for radiofrequency ablation. Further recommendation after the radiofrequency ablation. We will follow with you. Thank you, Dr. Quick, for providing us the opportunity in taking care of the patient, Bianca Huang. Jose Escalante MD
--- NOTE | 2017-12-21 14:25 | PN ---
Copied To: Jose Johansen MD Attending MD: Jose Johansen MD DATE: 12/21/2017 REFERRING PHYSICIAN: Dr. Quick. SUBJECTIVE: She is sitting in the side of the bed, supposed to go for tertiary care for possible cardioversion, still waiting, I think scheduled for tomorrow; overnight part of the night, used CPAP and tolerated well. Palpitation is better. No nausea, vomiting, diarrhea, leg pain or leg swelling. OBJECTIVE: VITAL SIGNS: Temperature is 98, heart rate 74, respiratory rate is 18, blood pressure 125/77, pulse ox 98% on nasal cannula. HEENT: Moist mucous membrane. Crowded airway. NECK: Short thick neck. LUNGS: Have a fair airflow. HEART: Irregularly irregular. ABDOMEN: Soft, nontender, no organomegaly. EXTREMITIES: No edema. NEUROLOGIC: Awake, alert and follows simple command. MEDICATIONS: She is on Aldactone 25 mg daily, Cardizem IV drip, Lasix 40 mg twice a day, Protonix 40 mg daily multivitamins daily. DATA: Laboratory data reviewed and no new lab is available since yesterday. IMPRESSION AND PLAN: Recurrent atrial fibrillation after ablation therapy, sleep apnea syndrome, noncompliant with the continuous positive airway pressure, hypertension and obesity. We will continue to encourage CPAP use. Keep head at 45 degrees. Need repeat sleep study to qualify her for CPAP. If , close cardiopulmonary monitor and anticoagulation as per Cardiology. We will follow with you. Jose Johansen MD
--- NOTE | 2017-12-21 23:01 | PN ---
Copied To: Lora Quick MD Attending MD: Lora Quick MD DATE: 12/21/2017 SUBJECTIVE: The patient was lying down on the bed. was sitting on the bedside also, feeling comfortable. Scheduled for tomorrow for procedure. The patient is supposed to go today for tertiary care for possibly cardioversion, but due to scheduling problem, still waiting. She used CPAP and tolerated very well. No nausea, vomiting, diarrhea. No hematuria. No hematochezia. No fever. No chills. PHYSICAL EXAMINATION: VITAL SIGNS: Temperature 98, heart rate 74, respiratory rate 18, blood pressure 125/77,pulse oximetry of 98. HEENT: Head normocephalic, atraumatic. Eyes PERRLA. Extraocular muscles intact. Conjunctivae clear. Nose patent. Mucous membrane moist. NECK: Supple. No carotid bruit. No JVD or thyromegaly. CHEST: Bilaterally symmetrical. HEART: Irregularly irregular. LUNGS: Clear to auscultation. ABDOMEN: Soft. Bowel sounds positive. No organomegaly. EXTREMITIES: No edema. No cyanosis. NEUROLOGICAL: The patient is awake and alert. Follows simple commands. MEDICATIONS: Aldactone, Cardizem drip, Lasix, Protonix, multivitamin. LABORATORY DATA: We do not have recent labs today, but I reviewed old labs. ASSESSMENT AND PLAN: Ms. Bianca Huang, 62-year-old lady with recurrent atrial fibrillation after ablation therapy three times, sleep apnea syndrome, noncompliant with continuous positive airway pressure, hypertension, obesity, history of anemia. Seen by Dr. Johansen. He ordered continuous positive airway pressure and encouraged to use that. Need repeat sleep study to qualify her for continuous positive airway pressure. Close cardiopulmonary monitoring. Anticoagulation as per Cardiology. I reviewed Dr. Johansen's note. I reviewed Dr. Escalante's notes also. Gastrointestinal, deep venous thrombosis prophylaxes. Repeat labs. We will follow up. Lora Quick MD ANAHI
[2017-12-22 02:03] VITALS: RESP 16
[2017-12-22] MEDS: diltiaZEM IVPB 100mg in NS 100 ML IV PRN (04:00)
[2017-12-22 06:54] VITALS: TEMP 98.2; O2SAT 95
[2017-12-22 07:04] LABS: HEMOGLOBIN 11.9 g/dL (12.0-16.0); MEAN CELL VOLUME 78.3 fl (80.0-105.0); MEAN CORPUSCULAR HEMOGLOBIN 24.8 pg (25.0-35.0); MEAN CORPUSCULAR HGB CONC 31.6 g/dl (31.0-37.0); RBC 4.8 10^6/uL (3.5-6.1); RED CELL DISTRIBUTION WIDTH 15.8 % (11.5-14.5); WHITE BLOOD COUNT 5.6 10^3/ul (4.5-11.0)
[2017-12-22 07:49] LABS: BLOOD UREA NITROGEN 22 mg/dL (7-21); CALCIUM 9.9 mg/dL (8.4-10.5); GFR NON-AFRICAN AMERICAN 56
[2017-12-22 08:34] VITALS: BP 114/83
[2017-12-22] MEDS: Pantoprazole 40 mg EC Tab PO SCH (08:34)
--- NOTE | 2017-12-22 08:45 | CP.PCM.PN ---
Subjective - Date & Time of Evaluation Date of Evaluation: 12/22/17 Time of Evaluation: 06:20 - Subjective Subjective: Awake, ambulating to bathroom, denies chest pain Reason for consultation and follow up: Cardiac evaluation of rapid atrial fibrillation,post radiofrequency ablation x 2, aortic regurgitation Seen and examined by me and Dr. Escalante Objective - Vital Signs/Intake and Output Vital Signs (last 24 hours): Temp Pulse Resp BP Pulse Ox 98.2 F 89 16 114/83 95 12/22/17 06:00 12/22/17 06:00 12/22/17 06:00 12/22/17 08:34 12/22/17 06:00 Intake and Output: 12/22/17 12/22/17 06:59 18:59 Intake Total 1280 Balance 1280 - Medications Medications: Current Medications Furosemide (Lasix) 40 mg PO 0800,1400 [facility] Last Admin: 12/22/17 08:34 Dose: 40 mg diltiaZEM IVPB 100mg in NS (Cardizem 100mg In Ns) 100 mls @ 10 mls/hr IV .Q10H PRN; Protocol; 10 MG/HR PRN Reason: TITRATE PER MD ORDER Last Admin: 12/22/17 04:00 Dose: 10 mg/hr, 10 mls/hr Multivitamins (Thera Tab) 1 tab PO DAILY [facility] Last Admin: 12/21/17 10:52 Dose: Not Given Pantoprazole Sodium (Protonix Ec Tab) 40 mg PO ACB [facility] Last Admin: 12/22/17 08:34 Dose: 40 mg Spironolactone (Aldactone) 25 mg PO DAILY [facility] Last Admin: 12/21/17 10:51 Dose: Not Given - Labs Labs: 12/22/17 06:00 12/22/17 06:00 - Constitutional Appears: No Acute Distress - Eye Exam Eye Exam: Normal appearance - ENT Exam ENT Exam: Mucous Membranes Moist - Respiratory Exam Respiratory Exam: Decreased Breath Sounds, Clear to Ausculation Bilateral, NORMAL BREATHING PATTERN - Cardiovascular Exam Cardiovascular Exam: Irregular Rhythm, +S1, +S2 Additional comments: Atrial [id number] - GI/Abdominal Exam GI & Abdominal Exam: Soft, Normal Bowel Sounds - Extremities Exam Extremities Exam: Normal Capillary Refill - Neurological Exam Neurological Exam: Alert, Awake, Oriented x3 - Psychiatric Exam Psychiatric exam: Normal Affect - Skin Skin Exam: Dry, Warm Assessment and Plan - Assessment and Plan (Free Text) Assessment: A 62 year old female, obese, who came in to the ER due to shortness of breath on exertion and palpitation for 1 week. history of congestive heart failure,COPD ,aortic regurgitation,mild non ischemic cardiomyopathy, Atrial fibrillation post radiofrequency ablation x 2. Follows up with Dr. Tate at [facility].Heart rate controlled with Cardizem drip.For transfer to [facility] today. Plan: For transfer to [facility] today for possible radiofrequency ablation Dr. Tate to accept and follow up the patient Continue Cardizem drip Heart rate controlled Atrial fibrillation 70's to 80's Blood pressure controlled Continue current treatment Continue current medications Plan and treatment discussed with Dr. Escalante
[2017-12-22] MEDS: Multivitamin Therapeutic Tab PO SCH (09:24)
[2017-12-22 11:30] VITALS: PULSE 88
--- NOTE | 2017-12-23 09:26 | DS ---
Copied To: Lora Quick MD Attending MD: Lora Quick MD CHIEF COMPLAINT: Shortness of breath, palpitation. HISTORY OF PRESENT ILLNESS: Ms. Bianca Huang is a 62-year-old female with past medical history of atrial fibrillation, on Eliquis; congestive heart failure; ejection fraction 35%; aortic regurgitation came with shortness of breath on exertion and palpitation from one week. The patient states that she has atrial fibrillation and takes Eliquis. No night sweats, no fever, no chills. No hematuria or hematochezia. We admitted the patient for Cardiology consult with Dr. Huang and Pulmonary, Dr. Johansen because of shortness of breath. The patient has rapid atrial fibrillation with ventricular response, status post frequency ablation x2, aortic regurgitation. The patient was transferred to Dr. Gonzalez at [facility]. The patient was given Cardizem drip in the hospital to control heart rate. Further treatment of Dr. Gonzalez, we will continue. He accepted the patient. PAST MEDICAL HISTORY: As above, obesity, hypothyroidism, noncompliant, atrial fibrillation. FAMILY HISTORY: Father and mother, noncontributory. HABITS: Never smoked, no drugs, no ethanol. ALLERGIES: THE PATIENT IS NOT ALLERGIC WITH ANY MEDICATIONS. HOME MEDICATIONS: Reviewed by me. REVIEW OF SYSTEMS: The patient was seen and examined on the bedside, looking comfortable. No headache, no dizziness. The patient was seen early in the morning. No fever, no chills. No hematuria or hematochezia. PHYSICAL EXAMINATION: VITAL SIGNS: Temperature 98.2, pulse 89, respiratory rate 16, blood pressure 140/83, pulse oximetry 95. HEENT: Head is normocephalic and atraumatic. Eyes: PERRLA. Extraocular muscles are intact. Conjunctivae are clear. Nose is patent. Mucous membranes are moist. NECK: Supple. No carotid bruit, JVD or thyromegaly. CHEST: Bilaterally symmetrical. HEART: S1 and S2 positive. LUNGS: Clear to auscultation. ABDOMEN: Soft. Bowel sounds present. No organomegaly. EXTREMITIES: No edema. No cyanosis. NEUROLOGICAL: The patient is awake and alert. Moving all 4 extremities. No focal deficit. MEDICATIONS: Lasix, Cardizem, Thera-Tabs, Protonix, Aldactone. LABORATORY DATA: White blood cells 5.6, hemoglobin 11.9, hematocrit 37.6, platelets 122. Sodium 140, potassium 4.1, BUN 32, creatinine 1, glucose 88. ASSESSMENT AND PLAN: Ms. Bianca Huang is a 62-year-old lady with anemia came in emergency room with shortness of breath on exertion and palpitation, history of congestive heart failure, chronic obstructive pulmonary disease, aortic regurgitation, mild nonischemic cardiomyopathy, atrial fibrillation, post radiofrequency ablation x2. Has followup with Dr. Gonzalez at [facility], in [place] we gave Cardizem drip. Heart rate was controlled with Cardizem drip. The patient has ejection fraction 35% with aortic regurgitation, is on Eliquis; has palpitation; shortness of breath on exertion; obesity; noncompliant; urged to be compliant. Now, we transferred the patient to [facility] for possible radiofrequency ablation. Dr. Gonzalez accepts the patient. Continue Cardizem drip. Heart rate controlled, atrial fibrillation, 70s to 80s. Blood pressure very well controlled. Continue present treatment. Gastrointestinal and deep venous thrombosis prophylaxes. Repeat labs. We will follow up. Lora Quick MD
== END 2017-12-22 13:38 | disposition short-term general hospital (02) | DRG 309 ==
LOC: ED 18:13 → ERH 20:32 → 2RNO 23:38
PROVIDERS: ADMIT Internal Medicine; ATTEND Internal Medicine
PROC: 5A09357 Assistance with Respiratory Ventilation, Less than 24 Consecutive Hours, Continuous Positive Airway Pressure (ICD-10-PCS; principal; 2017-12-20)
DX: I48.91 Unspecified atrial fibrillation (principal); I50.20 Unspecified systolic (congestive) heart failure; I11.0 Hypertensive heart disease with heart failure; I42.9 Cardiomyopathy, unspecified; E05.90 Thyrotoxicosis, unspecified without thyrotoxic crisis or storm; I08.3 Combined rheumatic disorders of mitral, aortic and tricuspid valves; J44.9 Chronic obstructive pulmonary disease, unspecified; G47.30 Sleep apnea, unspecified; D64.9 Anemia, unspecified; E78.00 Pure hypercholesterolemia, unspecified; E03.9 Hypothyroidism, unspecified; E78.5 Hyperlipidemia, unspecified; Z79.01 Long term (current) use of anticoagulants; Z91.19 Patient's noncompliance with other medical treatment and regimen; E66.9 Obesity, unspecified; Z68.39 Body mass index [BMI] 39.0-39.9, adult; Z79.82 Long term (current) use of aspirin; Z90.710 Acquired absence of both cervix and uterus